=== PATIENT | male | born 1955 | race Hispanic/Latino ===

== ENCOUNTER 2019-10-12 21:38 | Inpatient (IN) | payer BC, OTHER ==
[~2019-10-12] VITALS: Ht 172.7 cm; Wt 107.5 kg
[~2019-10-12 21:38] MED LIST: AMLO5TAB9 PO; AMOX-426 PO; ASPI-556 PO; CARV12.511 PO; FENO67CA PO; FURO40TA5 PO; GLIM4TAB36 PO; INSLAN SQ; ISOS20TA9 PO; LEVO25TA54 PO; LOSA100T58 PO; NITR0.4T SL; RANO500T2 PO; ROCURONIUM BROMIDE 10MG/1ML 5ML VL IV ONE; ROSU10TA28 PO; SITA50TA PO; TRAM50TA2 PO
[2019-10-12 21:57] LABS: ABG BASE EXCESS -8.2 mmol/L (-2.0-3.0); ABG HCO3 15.3 mmol/L (21.0-28.0); ABG OXYGEN SATURATION 96.5 % (95.0-99.0); ABG PCO2 27 mmHg (35-48)
[2019-10-12 22:35] LABS: BASOPHILS % (AUTO) 0.1 % (0.0-5.0); EOSINOPHILS % (AUTO) 0.1 % (0.0-8.0); HEMATOCRIT 30.2 % (42-54); LYMPHOCYTES % (AUTO) 6.4 % (21.0-51.0); MEAN CORPUSCULAR HEMOGLOBIN 30.7 pg (27.0-33.0); MEAN CORPUSCULAR HGB CONC 35.1 g/dL (32.0-36.0); MEAN CORPUSCULAR VOLUME 87.5 fL (79-99); MONOCYTES % (AUTO) 1.9 % (3.0-13.0); NEUTROPHILS % (AUTO) 88.8 % (40.0-77.0); NUCLEATED RED BLOOD CELLS 0.3 % (0.0-0.19); PLATELET COUNT (AUTO) 230 K/uL (130-400); RED BLOOD CELL COUNT(AUTO) 3.45 MIL/uL (4.50-6.20); RED CELL DISTRIBUTION WIDTH 13.4 % (11.0-15.5); WHITE BLOOD COUNT (AUTO) 7.9 K/uL (4.8-10.8)
[2019-10-12 23:02] LABS: CREATININE 4.2 mg/dL (0.5-1.5); POTASSIUM 3.5 mmol/L (3.5-5.1)
[2019-10-12 23:08] LABS: INR 1.09 (0.85-1.15); PARTIAL THROMBOPLASTIN TIME 28.5 SEC (26.3-35.5); PROTHROMBIN TIME 11.7 SEC (9.6-11.6)
[2019-10-12 23:23] LABS: ALBUMIN 1.5 g/dL (3.5-5.0); BILIRUBIN,TOTAL 0.3 mg/dL (0.2-1.0); TOTAL PROTEIN, SERUM 5.6 g/dL (6.0-8.3)
[2019-10-12 23:42] LABS: CRP QUANTITATIVE 286.5 mg/L (0.00-9.0)
[2019-10-12] MEDS: DOXYCYCLINE 100MG+NS 250ML IV SCH (23:45)
[2019-10-12] MEDS ORDERED: ERGOCALCIFEROL (VITAMIN D2) 50,000 UNIT CAPSULE PO ONE (23:45)
[2019-10-12] MEDS ORDERED: ACETAMINOPHEN 325 MG TAB PO PRN (23:45)
[2019-10-12] MEDS: CEFTRIAXONE SODIUM 1 GM IVP SCH (23:45)
[2019-10-12] MEDS ORDERED: LACTULOSE 20 GM/30 ML UDCUP PO PRN (23:45)
[2019-10-13] MEDS ORDERED: ERGOCALCIFEROL (VITAMIN D2) 50,000 UNIT CAPSULE ONE (00:01)
[2019-10-13] MEDS ORDERED: ASPIRIN 325 MG TABLET PO STA (00:06)
[2019-10-13] MEDS ORDERED: ASPIRIN 81MG TAB.CHEW ONE ×2 (00:49→10:18)
[2019-10-13 01:11] LABS: CHOLESTEROL 133 mg/dL (<200); HDL CHOLESTEROL 90 mg/dL (29-71); LDL DIRECT 60 mg/dL (0-99); TRIGLYCERIDES 250 mg/dL (30-200)
[2019-10-13] MEDS ORDERED: ASPIRIN 325 MG TABLET ONE (02:08)
[2019-10-13] MEDS ORDERED: INSULIN HUMULIN R 100 UNIT/ML 3ML ONE (05:44)
[2019-10-13] MEDS: INSULIN HUMULIN R 100 UNIT/ML 3ML SQ SCH ×4 (05:58→20:17)
[2019-10-13] MEDS: ASCORBIC ACID 500 MG TAB PO SCH (09:00)
[2019-10-13] MEDS ORDERED: ENOXAPARIN SODIUM 40 MG/0.4 ML SYRINGE SQ SCH (09:00)
[2019-10-13] MEDS: ZINC SULFATE 220 CAPSULE PO SCH (09:00)
[2019-10-13] MEDS: METOPROLOL TARTRATE 25 MG TAB PO SCH ×2 (09:00→19:53)
[2019-10-13] MEDS ORDERED: METHYLPREDNISOLONE SOD SUCC 40MG/ML 1ML IVP SCH (09:00)
[2019-10-13] MEDS: ASPIRIN 81MG TAB.CHEW PO SCH (09:00)
[2019-10-13] MEDS ORDERED: ASCORBIC ACID 500 MG TAB ONE (10:18)
[2019-10-13] MEDS ORDERED: ZINC SULFATE 220 CAPSULE ONE (10:18)
[2019-10-13] MEDS ORDERED: METHYLPREDNISOLONE SOD SUCC 125MG/2ML VIAL ONE ×2 (10:19→15:00)
[2019-10-13] MEDS ORDERED: ENOXAPARIN SODIUM 40 MG/0.4 ML SYRINGE SQ ONE (10:19)
[2019-10-13] MEDS: DOXYCYCLINE 100MG+NS 250ML IV SCH (11:45)
[2019-10-13] MEDS: CEFTRIAXONE SODIUM 1 GM IVP SCH ×2 (11:45→23:29)
[2019-10-13] MEDS ORDERED: LORAZEPAM 2 MG/ML 1 ML VIAL ONE (13:08)
[2019-10-13 13:15] LABS: BASOPHILS % (AUTO) 0.1 % (0.0-5.0); HEMATOCRIT 32.5 % (42-54); LYMPHOCYTES % (AUTO) 6.1 % (21.0-51.0); MEAN CORPUSCULAR HEMOGLOBIN 29.9 pg (27.0-33.0); MEAN CORPUSCULAR HGB CONC 34.2 g/dL (32.0-36.0); MEAN CORPUSCULAR VOLUME 87.6 fL (79-99); MONOCYTES % (AUTO) 1.7 % (3.0-13.0); NEUTROPHILS % (AUTO) 89.5 % (40.0-77.0); NUCLEATED RED BLOOD CELLS 0.3 % (0.0-0.19); PLATELET COUNT (AUTO) 242 K/uL (130-400); RED BLOOD CELL COUNT(AUTO) 3.71 MIL/uL (4.50-6.20); RED CELL DISTRIBUTION WIDTH 13.5 % (11.0-15.5); WHITE BLOOD COUNT (AUTO) 8.7 K/uL (4.8-10.8)
[2019-10-13 13:19] LABS: POTASSIUM 3.7 mmol/L (3.5-5.1)
[2019-10-13 13:25] LABS: ALBUMIN 1.5 g/dL (3.5-5.0); BILIRUBIN,TOTAL 0.3 mg/dL (0.2-1.0); TOTAL PROTEIN, SERUM 5.6 g/dL (6.0-8.3)
--- NOTE | 2019-10-13 13:37 | NUR ---
INITIAL SW spoke with patient's spouse, Emelina Virk, [phone]. Patient has no home services. DME: BPM, glucometer (uses insulin). 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 He is able to complete ADL's independently and drives. PCP is Dr. Ag Adame at [place]. Pharmacy is [facility] or [place] [facility]. DCP is home. Addendum: 10/13/19 at 1341 by FAHAD CAMPOVERDE SS Amended: Links added.
[2019-10-13] MEDS: METHYLPREDNISOLONE SOD SUCC 125MG/2ML VIAL IVP SCH ×2 (14:45→19:53)
[2019-10-13] MEDS ORDERED: CEFTRIAXONE SODIUM 1 GM ONE (15:00)
[2019-10-13] MEDS ORDERED: DOXYCYCLINE 100MG+NS 250ML 250 ML IV ONE (15:00)
--- NOTE | 2019-10-13 17:25 | NUR ---
pt received from ED aaox4\ resp tachypneic and labored at rest. pt arrived with nrb on 15pm. 02 sat 51% RN called resp therapy to set up bipap. respiratory at beside. pt placed in prone position, bipap on. 02 sat 98% Bedside cardiac catheterization technician showing SR @88 pt speaking in fragmented sentences with clear speech moving all extremities freely
[2019-10-13 19:00] VITALS: BP 145/65
[2019-10-13] MEDS: LORAZEPAM 2 MG/ML 1 ML VIAL IVP PRN (19:55)
[2019-10-13 20:00] VITALS: BP 134/68
[2019-10-13 21:00] VITALS: BP 133/65
[2019-10-13 22:00] VITALS: BP 143/71
[2019-10-13 23:54] VITALS: BP 128/58
[2019-10-14] VITALS (32 sets, daily range): BP systolic 105–158; BP diastolic 42–102
[2019-10-14] MEDS: DOXYCYCLINE 100MG+NS 250ML IV SCH (00:57)
[2019-10-14] MEDS: METHYLPREDNISOLONE SOD SUCC 125MG/2ML VIAL IVP SCH ×4 (02:46→19:38)
[2019-10-14 03:50] LABS: HEMATOCRIT 33.6 % (42-54); MEAN CORPUSCULAR HEMOGLOBIN 30.7 pg (27.0-33.0); MEAN CORPUSCULAR HGB CONC 34.5 g/dL (32.0-36.0); MEAN CORPUSCULAR VOLUME 88.9 fL (79-99); PLATELET COUNT (AUTO) 258 K/uL (130-400); RED BLOOD CELL COUNT(AUTO) 3.78 MIL/uL (4.50-6.20); RED CELL DISTRIBUTION WIDTH 13.4 % (11.0-15.5); WHITE BLOOD COUNT (AUTO) 10.4 K/uL (4.8-10.8)
[2019-10-14 04:04] LABS: CREATININE 3.8 mg/dL (0.5-1.5); CRP QUANTITATIVE 163.4 mg/L (0.00-9.0); PHOSPHORUS 3.9 mg/dL (2.5-4.9); POTASSIUM 3.5 mmol/L (3.5-5.1)
[2019-10-14 04:06] LABS: BAND NEUTROPHILS % (MANUAL) 2 % (0-2); LYMPHOCYTES % (MANUAL) 5 % (22-44); MAN.DIFF COMMENT-IMPRESSION MANUAL DIFFERENTIAL; MONOCYTES % (MANUAL) 5 % (2-9); SEGMENTED NEUTROPHILS % 88 % (40-70)
[2019-10-14 04:07] LABS: PLATELET MORPHOLOGY COMMENT ADEQUATE
[2019-10-14 04:24] LABS: % IRON SATURATION 25.5 % (30-44)
--- NOTE | 2019-10-14 07:03 | NUR ---
REPORT GIVEN TO DUNIA BARRERA; VSS ON BIPAP; NO S/S DISTRESS NOTED; RELINQUISHED PT CARE AT THIS TIME
[2019-10-14] MEDS: ZINC SULFATE 220 CAPSULE PO SCH (08:44)
[2019-10-14] MEDS: ASPIRIN 81MG TAB.CHEW PO SCH (08:44)
[2019-10-14] MEDS: METOPROLOL TARTRATE 25 MG TAB PO SCH (08:44)
[2019-10-14] MEDS: ASCORBIC ACID 500 MG TAB PO SCH (08:44)
[2019-10-14] MEDS: ENOXAPARIN SODIUM 120 MG/0.8ML SQ SCH (08:45)
[2019-10-14] MEDS: INSULIN HUMULIN R 100 UNIT/ML 3ML SQ SCH ×4 (09:27→19:53)
[2019-10-14] MEDS ORDERED: CLOPIDOGREL BISULFATE 75 MG TAB PO SCH (10:00)
[2019-10-14] MEDS: CEFTRIAXONE SODIUM 1 GM IVP SCH (10:42)
--- NOTE | 2019-10-14 10:57 | NUR ---
CHART CHECK COMPLETED. Pt IS A 64 YEAR OLD MALE ADMITTED SECONDARY TO POSSIBLE COVID, ACUTE RENAL FAILURE, ACUTE RESPIRATORY DISTRESS. Pt HAS A PAST MEDICAL HISTORY SIGNIFICANT FOR DM, HTN, CAD, HLD, ANGINA. Pt CURRENTLY ON REGULAR TEXTURE, THIN LIQUID DIET. Pt WITH POOR RESPIRATORY STATUS REQUIRING BIPAP. PLEASE REQUEST SKILLED SPEECH/SWALLOWING EVALUATION IF Pt PRESENTS WITH +S/S OF ASPIRATION SUCH COUGH RESPONSE, WET VOCAL QUALITY, OR THROAT CLEAR DURING P.O. Pt SHOULD BE ABLE TO BE OFF OF BIPAP FOR 30 MINUTES DURING MEAL IF CURRENTLY ON P.O. DIET. Addendum: 10/14/19 at 1102 by JOE MCKEON [facility] Amended: Links added.
[2019-10-14] MEDS ORDERED: PHARMACY COMMUNICATION MISC SCH (11:15)
[2019-10-14] MEDS ORDERED: INSULIN GLARGINE 100 UNITS/ML 10 ML VIAL SQ ONE (11:15)
--- NOTE | 2019-10-14 12:00 | NUR ---
PHONE CALL FAMILY UPDATED
[2019-10-14] MEDS: DOXYCYCLINE 100MG+NS 250ML 250 ML IV SCH (12:36)
[2019-10-14] MEDS ORDERED: EZET10TA48 PO (14:57)
[2019-10-14] MEDS ORDERED: FOLI1TAB85 PO (14:57)
[2019-10-14] MEDS ORDERED: CARV25TA PO (14:57)
[2019-10-14] MEDS ORDERED: DULA0.75 SQ (14:57)
[2019-10-14] MEDS: LORAZEPAM 2 MG/ML 1 ML VIAL IVP PRN ×2 (15:00→22:33)
[2019-10-14 15:54] LABS: APPEARANCE,URINE SL CLOUDY (CLEAR); BILIRUBIN,URINE NEGATIVE (NEGATIVE); COLOR,URINE YELLOW (YELLOW); GLUCOSE, URINE (UA) NEGATIVE (NEGATIVE); KETONES,URINE NEGATIVE (NEGATIVE); LEUKOCYTE ESTERASE ,URINE NEGATIVE (NEGATIVE); NITRATE,URINE NEGATIVE (NEGATIVE); OCCULT BLOOD,URINE LARGE (NEGATIVE); PROTEIN,URINE >=300 mg/dL (NEGATIVE); UROBILINOGEN,URINE 0.2 mg/dL (0.2-1.0)
[2019-10-14 16:08] LABS: BACTERIA,URINE Few /HPF (None Seen)
[2019-10-14 16:13] LABS: SQUAMOUS EPITHELIAL CELL,UR Few /HPF (0-2)
[2019-10-14] MEDS ORDERED: LORAZEPAM 2 MG/ML 1 ML VIAL IVP SCH (16:15)
[2019-10-14] MEDS: DEXMEDETOMIDINE HCL 400 MCG in SODIUM CHLORIDE 0.9% 100 ML IV SCH (19:44)
[2019-10-15] VITALS (51 sets, daily range): BP systolic 111–150; BP diastolic 57–82
[2019-10-15] MEDS: CEFTRIAXONE SODIUM 1 GM IVP SCH ×2 (00:18→11:31)
[2019-10-15] MEDS: DOXYCYCLINE 100MG+NS 250ML 250 ML IV SCH ×2 (00:18→11:31)
[2019-10-15] MEDS: METHYLPREDNISOLONE SOD SUCC 125MG/2ML VIAL IVP SCH ×4 (01:56→20:37)
[2019-10-15] MEDS: DEXMEDETOMIDINE HCL 400 MCG in SODIUM CHLORIDE 0.9% 100 ML IV SCH ×3 (03:40→20:40)
[2019-10-15 04:32] LABS: HEMATOCRIT 30.5 % (42-54); LYMPHOCYTES % (AUTO) 4.4 % (21.0-51.0); MEAN CORPUSCULAR HEMOGLOBIN 30.3 pg (27.0-33.0); MEAN CORPUSCULAR HGB CONC 34.4 g/dL (32.0-36.0); MEAN CORPUSCULAR VOLUME 88.2 fL (79-99); MONOCYTES % (AUTO) 2.7 % (3.0-13.0); NEUTROPHILS % (AUTO) 90.7 % (40.0-77.0); NUCLEATED RED BLOOD CELLS 0.7 % (0.0-0.19); PLATELET COUNT (AUTO) 223 K/uL (130-400); RED BLOOD CELL COUNT(AUTO) 3.46 MIL/uL (4.50-6.20); RED CELL DISTRIBUTION WIDTH 13.6 % (11.0-15.5); WHITE BLOOD COUNT (AUTO) 8.1 K/uL (4.8-10.8)
[2019-10-15 04:56] LABS: ALBUMIN 1.3 g/dL (3.5-5.0); BILIRUBIN,TOTAL 0.3 mg/dL (0.2-1.0); CREATININE 3.3 mg/dL (0.5-1.5); CRP QUANTITATIVE 71.2 mg/L (0.00-9.0); MAGNESIUM 3.5 mg/dL (1.80-2.40); PHOSPHORUS 4.2 mg/dL (2.5-4.9); POTASSIUM 3.6 mmol/L (3.5-5.1); TOTAL PROTEIN, SERUM 5.2 g/dL (6.0-8.3)
[2019-10-15] MEDS: INSULIN GLARGINE 100 UNITS/ML 10 ML VIAL SQ SCH (06:50)
[2019-10-15] MEDS: INSULIN HUMULIN R 100 UNIT/ML 3ML SQ SCH ×4 (06:50→20:39)
[2019-10-15] MEDS ORDERED: METOPROLOL TARTRATE 25 MG TAB ONE (08:54)
[2019-10-15] MEDS ORDERED: PANTOPRAZOLE SODIUM 40 MG TABLET.DR PO SCH (09:00)
[2019-10-15] MEDS ORDERED: SODIUM CHLORIDE 0.9% 250 ML IV ONE (09:15)
[2019-10-15] MEDS: ASCORBIC ACID 500 MG TAB PO SCH (09:20)
[2019-10-15] MEDS: PANTOPRAZOLE 40 MG/VIAL IVP SCH (09:20)
[2019-10-15] MEDS: ASPIRIN 81MG TAB.CHEW PO SCH (09:20)
[2019-10-15] MEDS: ZINC SULFATE 220 CAPSULE PO SCH (09:21)
[2019-10-15] MEDS: ENOXAPARIN SODIUM 120 MG/0.8ML SQ SCH (09:21)
[2019-10-15] MEDS: CLOPIDOGREL BISULFATE 75 MG TAB PO SCH (09:21)
[2019-10-15] MEDS: METOPROLOL TARTRATE 25 MG TAB PO SCH ×2 (09:22→20:41)
--- NOTE | 2019-10-15 14:52 | NUR ---
PHONE CALL UPDATED PATIENTS DAUGHTER GRAZYNA ON PATIENT STATUS AND GAVE OPPORTUNITY TO ASK QUESTIONS.
[2019-10-15] MEDS: LORAZEPAM 2 MG/ML 1 ML VIAL IVP PRN (20:37)
[2019-10-16] VITALS (24 sets, daily range): BP systolic 131–167; BP diastolic 51–82
[2019-10-16] MEDS: CEFTRIAXONE SODIUM 1 GM IVP SCH ×3 (01:17→23:45)
[2019-10-16] MEDS: DOXYCYCLINE 100MG+NS 250ML 250 ML IV SCH ×2 (01:17→11:35)
[2019-10-16] MEDS: LORAZEPAM 2 MG/ML 1 ML VIAL IVP PRN (02:43)
[2019-10-16] MEDS: DEXMEDETOMIDINE HCL 400 MCG in SODIUM CHLORIDE 0.9% 100 ML IV SCH ×4 (02:43→20:03)
[2019-10-16] MEDS: METHYLPREDNISOLONE SOD SUCC 125MG/2ML VIAL IVP SCH ×4 (02:43→20:04)
[2019-10-16] MEDS: HYDRALAZINE HCL 20 MG/ML VIAL IV PRN (03:53)
[2019-10-16] MEDS ORDERED: HALOPERIDOL LACTATE 5 MG/ML VIAL ONE ×2 (04:34→11:55)
[2019-10-16 04:41] LABS: BASOPHILS % (AUTO) 0.1 % (0.0-5.0); HEMATOCRIT 30.6 % (42-54); LYMPHOCYTES % (AUTO) 3.6 % (21.0-51.0); MEAN CORPUSCULAR HEMOGLOBIN 30.4 pg (27.0-33.0); MEAN CORPUSCULAR VOLUME 89.5 fL (79-99); MONOCYTES % (AUTO) 2.6 % (3.0-13.0); NEUTROPHILS % (AUTO) 91.6 % (40.0-77.0); NUCLEATED RED BLOOD CELLS 0.6 % (0.0-0.19); PLATELET COUNT (AUTO) 205 K/uL (130-400); RED BLOOD CELL COUNT(AUTO) 3.42 MIL/uL (4.50-6.20); RED CELL DISTRIBUTION WIDTH 13.8 % (11.0-15.5); WHITE BLOOD COUNT (AUTO) 8.1 K/uL (4.8-10.8)
[2019-10-16 05:05] LABS: ALBUMIN 1.5 g/dL (3.5-5.0); BILIRUBIN,TOTAL 0.5 mg/dL (0.2-1.0); CREATININE 2.7 mg/dL (0.5-1.5); CRP QUANTITATIVE 34.1 mg/L (0.00-9.0); MAGNESIUM 3.9 mg/dL (1.80-2.40); PHOSPHORUS 3.5 mg/dL (2.5-4.9); POTASSIUM 3.5 mmol/L (3.5-5.1)
--- NOTE | 2019-10-16 05:05 | NUR ---
PT EXTREMELY TACHYPNEIC MAXED ON PRECEDEX GTT AND AFTER GIVEN HALDOL IM ORDERS VIA DR. MIRANDA PER TELEPHONE; STAT ABG ORDERED; PTS RR IN 60S WITH MARKED LABORED BREATHING; AWAITING ABG RESULTS FOR FOLLOW UP
--- NOTE | 2019-10-16 05:20 | NUR ---
DR MIRANDA UPDATED ON PTS ABG RESULTS AND PTS PHYSICAL ASSESSMENT WITH NOTED ACCESSORY MUSCLE USE; ALL LS DIMINISHED; PENDING CHEST XRAY THIS AM; DR MIRANDA STATES PER TELEPHONE "CHANGES ON THE BIPAP ARE NOT CURRENTLY NECESSARY AND WE WILL HAVE TO WAIT UNTIL THE PATIENT TIRES OUT"; WILL CONTINUE TO CLOSELY MONITOR
[2019-10-16] MEDS: INSULIN GLARGINE 100 UNITS/ML 10 ML VIAL SQ SCH (06:20)
[2019-10-16] MEDS: INSULIN LISPRO 100 UNIT/ML 3ML SQ SCH ×3 (06:22→17:00)
[2019-10-16] MEDS: INSULIN HUMULIN R 100 UNIT/ML 3ML SQ SCH ×4 (06:22→20:04)
--- NOTE | 2019-10-16 07:16 | NUR ---
REPORT GIVEN TO DUNIA WHITAKER; VSS FINALLY RESTING ON BIPAP RR MILDLY LABORED IN 30S; NO S/S ACUTE DISTRESS NOTED; CHART CHECK DONE; RELINQUISHED PT CARE AT THIS TIME
--- NOTE | 2019-10-16 07:30 | NUR ---
ASSESSMENT Comfortably sedated with current dose of precedex - 0.9mcg/kg/hr. Pt arousable with verbal stimulation and light tactile stimulation - opened eyes to command but did not make eye contact with caregiver. Attempts made to reorient/reassure pt - did not acknowledge understanding. SB on tele with distant apical heart tones. Diminished breath sounds throughout. Pt agitated with tactile stimulation- attempted to push away hand of caregiver during assessment. PIV x2 patent. Mittens in use to both hand. Remains on bipap at prescribed settings. Abd obese - soft. Diminished bowel sounds. F/C patent - cloudy urine. Repositioned to left side lying position. HOB at 35-degrees. Side rails up for safety. Assessment as recorded.
[2019-10-16] MEDS: ZINC SULFATE 220 CAPSULE PO SCH (09:00)
[2019-10-16] MEDS: ASPIRIN 81MG TAB.CHEW PO SCH (09:00)
[2019-10-16] MEDS: METOPROLOL TARTRATE 25 MG TAB PO SCH ×2 (09:00→20:03)
[2019-10-16] MEDS: CLOPIDOGREL BISULFATE 75 MG TAB PO SCH (09:00)
[2019-10-16] MEDS: ASCORBIC ACID 500 MG TAB PO SCH (09:00)
[2019-10-16 10:26] LABS: ABG BASE EXCESS -5.4 mmol/L (-2.0-3.0); ABG HCO3 18.3 mmol/L (21.0-28.0); ABG OXYGEN SATURATION 94.9 % (95.0-99.0); ABG PCO2 31 mmHg (35-48)
--- NOTE | 2019-10-16 11:00 | NUR ---
MD ROUNDS in to see pt - updated. No new changes in plan of care. Discussed insertion of NGT for med administration - not recommended currently by MD. Pt is in no acute distress. No acute changes in overall assessment. SB on tele. HOB @35-degrees. Supine position. Pt easily agitated with tactile stimulation/repositioning. IV precedex titrated to effect.
[2019-10-16] MEDS: PANTOPRAZOLE 40 MG/VIAL IVP SCH (11:34)
[2019-10-16] MEDS: ENOXAPARIN SODIUM 120 MG/0.8ML SQ SCH (11:35)
--- NOTE | 2019-10-16 12:30 | NUR ---
PT CARE Placed in prone position. Will observe pt tolerance.
--- NOTE | 2019-10-16 12:50 | NUR ---
ASSESSMENT Pt repositioned self out of prone position - found in right side-lying position. Bipap mask replaced - correct position achieved. IV precedex gtt titrated for effect - now at 1.5mcg/kg/hr. Will observe tolerance. Attempts made to reassure pt.
--- NOTE | 2019-10-16 13:45 | NUR ---
ASSESSMENT Resting quietly - no further agitation noted. IV precedex gtt now at 1mcg/kg/hr. Will observe tolerance.
[2019-10-16] MEDS ORDERED: PHARMACY COMMUNICATION MISC SCH (14:30)
--- NOTE | 2019-10-16 15:40 | NUR ---
ASSESSMENT No acute changes in overall assessment. Complete bed bath rendered. Repositioned for comfort - left side-lying position with HOB elevated. Pt is in no acute distress.
[2019-10-16 18:45] LABS: APPEARANCE,URINE CLEAR (CLEAR); BILIRUBIN,URINE NEGATIVE (NEGATIVE); COLOR,URINE YELLOW (YELLOW); GLUCOSE, URINE (UA) NEGATIVE (NEGATIVE); KETONES,URINE NEGATIVE (NEGATIVE); LEUKOCYTE ESTERASE ,URINE NEGATIVE (NEGATIVE); NITRATE,URINE NEGATIVE (NEGATIVE); OCCULT BLOOD,URINE LARGE (NEGATIVE); PROTEIN,URINE >=300 mg/dL (NEGATIVE); UROBILINOGEN,URINE 0.2 mg/dL (0.2-1.0)
[2019-10-16 18:47] LABS: SODIUM,URINE RANDOM < 15 mmol/l (40-220)
[2019-10-16 18:54] LABS: BACTERIA,URINE Few /HPF (None Seen); SQUAMOUS EPITHELIAL CELL,UR Few /HPF (0-2); URIC ACID CRYSTALS,URINE Moderate /LPF (None Seen)
[2019-10-16] MEDS: DOXYCYCLINE HYCLATE 100 MG TABLET PO SCH (20:04)
[2019-10-17] VITALS (29 sets, daily range): BP systolic 113–168; BP diastolic 60–83
[2019-10-17] MEDS: HALOPERIDOL LACTATE 5 MG/ML VIAL IM PRN ×3 (02:26→19:34)
[2019-10-17] MEDS: DEXMEDETOMIDINE HCL 400 MCG in SODIUM CHLORIDE 0.9% 100 ML IV SCH ×6 (02:28→21:23)
[2019-10-17] MEDS: LORAZEPAM 2 MG/ML 1 ML VIAL IVP PRN (02:37)
[2019-10-17] MEDS: METHYLPREDNISOLONE SOD SUCC 125MG/2ML VIAL IVP SCH (02:37)
[2019-10-17 04:12] LABS: BASOPHILS % (AUTO) 0.1 % (0.0-5.0); HEMATOCRIT 33.6 % (42-54); LYMPHOCYTES % (AUTO) 3.2 % (21.0-51.0); MEAN CORPUSCULAR HEMOGLOBIN 31.1 pg (27.0-33.0); MEAN CORPUSCULAR HGB CONC 33.3 g/dL (32.0-36.0); MEAN CORPUSCULAR VOLUME 93.3 fL (79-99); MONOCYTES % (AUTO) 2.6 % (3.0-13.0); NEUTROPHILS % (AUTO) 92.1 % (40.0-77.0); PLATELET COUNT (AUTO) 194 K/uL (130-400); RED CELL DISTRIBUTION WIDTH 14.5 % (11.0-15.5); WHITE BLOOD COUNT (AUTO) 7.4 K/uL (4.8-10.8)
[2019-10-17 04:31] LABS: ALBUMIN 1.6 g/dL (3.5-5.0); BILIRUBIN,TOTAL 0.7 mg/dL (0.2-1.0); CREATININE 2.7 mg/dL (0.5-1.5); CRP QUANTITATIVE 22.6 mg/L (0.00-9.0); MAGNESIUM 3.6 mg/dL (1.80-2.40); PHOSPHORUS 5.9 mg/dL (2.5-4.9); POTASSIUM 3.7 mmol/L (3.5-5.1); TOTAL PROTEIN, SERUM 5.2 g/dL (6.0-8.3)
[2019-10-17] MEDS: INSULIN LISPRO 100 UNIT/ML 3ML SQ SCH ×3 (05:46→17:00)
[2019-10-17] MEDS: INSULIN GLARGINE 100 UNITS/ML 10 ML VIAL SQ SCH (06:08)
[2019-10-17] MEDS: INSULIN HUMULIN R 100 UNIT/ML 3ML SQ SCH ×4 (06:08→21:25)
[2019-10-17] MEDS: ONDANSETRON HCL 4 MG/2 ML VIAL IV PRN (06:09)
--- NOTE | 2019-10-17 07:09 | NUR ---
REPORT GIVEN TO DUNIA ALVA; VSS ON BIPAP AND PRECEDEX GTT; NO S/S DISTRESS NOTED; CHART CHECK DONE;RELINQUISHED PT CARE AT THIS TIME
[2019-10-17] MEDS ORDERED: ENOXAPARIN SODIUM 30 MG/0.3 ML SQ SCH (09:00)
[2019-10-17] MEDS: METOPROLOL TARTRATE 25 MG TAB PO SCH ×2 (09:00→21:00)
[2019-10-17] MEDS: METHYLPREDNISOLONE SOD SUCC 40MG/ML 1ML IVP SCH ×3 (09:01→23:22)
[2019-10-17] MEDS: CLOPIDOGREL BISULFATE 75 MG TAB PO SCH (09:01)
[2019-10-17] MEDS: DOXYCYCLINE HYCLATE 100 MG TABLET PO SCH ×2 (09:01→21:24)
[2019-10-17] MEDS: ASCORBIC ACID 500 MG TAB PO SCH (09:01)
[2019-10-17] MEDS: ISOSORBIDE DINITRATE 10 MG TABLET PO SCH ×2 (09:01→21:24)
[2019-10-17] MEDS: PANTOPRAZOLE 40 MG/VIAL IVP SCH (09:01)
[2019-10-17] MEDS: ASPIRIN 81MG TAB.CHEW PO SCH (09:02)
[2019-10-17] MEDS: DEXTROSE 5%-WATER 1,000 ML IV SCH ×3 (09:03→23:57)
[2019-10-17] MEDS: ZINC SULFATE 220 CAPSULE PO SCH (12:33)
[2019-10-17] MEDS: CEFTRIAXONE SODIUM 1 GM IVP SCH ×2 (12:33→23:22)
--- NOTE | 2019-10-17 13:03 | NUR ---
RD NOTIFICATION - TUBE FEEDING Recommend Continuous Vital High Protein, Goal rate at 45mls/hr. Recommend Flush 300mL Q4Hrs Recommendations faxed to [address] Floor Pod [address]. costume rental clerk notified. RD Note: Pt positive for COVID-19. NGT placed. High-flow BiPAP in place. Na 162, Cr 2.7, BUN 90, GFR 25, BG 213, Alb 1.6. Acute Renal Failure. DM. Lantus, Zinc supplementation in place. Lantus, IV dextrose, Humulin R in place. RD to continue to monitor. Please notify as additional nutrition concerns arise. Thank you.
[2019-10-17] MEDS: HYDRALAZINE HCL 20 MG/ML VIAL IV PRN (16:58)
--- NOTE | 2019-10-17 18:47 | NUR ---
HEMATURIA DR BENNETT ORDERED A HOLD ON PLAVIX, ASPIRIN, AND LOVENOX FOR NOW; STATED HE WILL REEVALUATE PATIENT TOMORROW; HEMATURIA NOTED EARLIER TODAY AND DR BENNETT AND DR MELENDREZ NOTIFIED AND AWARE; WAS ABLE TO SEE AND SPEAK TO THE PATIENT VIA ZOOM TABLET FROM NURSE'S STATION. PATIENT REMAINS ON BIPAP AND PRECEDEX ORDERED BY DR BENNETT; NGT ATTEMPTED TO BE REPLACED BY 4 RNS DURING THE DAY; MACROECONOMICS PROFESSOR TO TRY TO REPLACE NGT TONIGHT; PRIOR NGT BECAME CLOGGED THIS AFTERNOON.
[2019-10-18] VITALS (24 sets, daily range): BP systolic 110–174; BP diastolic 46–84
[2019-10-18] MEDS: DEXMEDETOMIDINE HCL 400 MCG in SODIUM CHLORIDE 0.9% 100 ML IV SCH ×3 (01:01→09:06)
[2019-10-18] MEDS: HYDRALAZINE HCL 20 MG/ML VIAL IV PRN ×2 (02:09→19:46)
[2019-10-18 03:44] LABS: HEMATOCRIT 33.5 % (42-54); LYMPHOCYTES % (AUTO) 2.4 % (21.0-51.0); MEAN CORPUSCULAR HEMOGLOBIN 30.1 pg (27.0-33.0); MEAN CORPUSCULAR HGB CONC 31.9 g/dL (32.0-36.0); MEAN CORPUSCULAR VOLUME 94.4 fL (79-99); MONOCYTES % (AUTO) 2.7 % (3.0-13.0); NEUTROPHILS % (AUTO) 93.2 % (40.0-77.0); NUCLEATED RED BLOOD CELLS 0.3 % (0.0-0.19); PLATELET COUNT (AUTO) 163 K/uL (130-400); RED BLOOD CELL COUNT(AUTO) 3.55 MIL/uL (4.50-6.20); RED CELL DISTRIBUTION WIDTH 14.7 % (11.0-15.5); WHITE BLOOD COUNT (AUTO) 5.8 K/uL (4.8-10.8)
[2019-10-18 04:12] LABS: BILIRUBIN,DIRECT 0.4 mg/dL (0.0-0.3); BILIRUBIN,TOTAL 0.7 mg/dL (0.2-1.0); CREATININE 2.4 mg/dL (0.5-1.5); CRP QUANTITATIVE 19.7 mg/L (0.00-9.0); MAGNESIUM 3.8 mg/dL (1.80-2.40); PHOSPHORUS 5.2 mg/dL (2.5-4.9); POTASSIUM 3.9 mmol/L (3.5-5.1)
[2019-10-18 04:15] LABS: INR 1.48 (0.85-1.15); PARTIAL THROMBOPLASTIN TIME 27.1 SEC (26.3-35.5); PROTHROMBIN TIME 15.7 SEC (9.6-11.6)
[2019-10-18] MEDS: INSULIN HUMULIN R 100 UNIT/ML 3ML SQ SCH ×4 (05:30→19:47)
[2019-10-18] MEDS: INSULIN LISPRO 100 UNIT/ML 3ML SQ SCH ×3 (05:30→17:05)
[2019-10-18] MEDS: INSULIN GLARGINE 100 UNITS/ML 10 ML VIAL SQ SCH (05:38)
--- NOTE | 2019-10-18 07:18 | NUR ---
REPORT GIVEN TO DUNIA LANDIN ;VSS; PT CALM ON PRECEDEX GTT; NO S/S DISTRESS NOTED; CHART CHECK DONE; RELINQUISHED PT CARE AT THIS TIME
[2019-10-18] MEDS: PANTOPRAZOLE 40 MG/VIAL IVP SCH (09:01)
[2019-10-18] MEDS: METHYLPREDNISOLONE SOD SUCC 40MG/ML 1ML IVP SCH ×2 (09:01→17:02)
[2019-10-18] MEDS: DEXTROSE 5%-WATER 1,000 ML IV SCH ×4 (09:02→17:06)
[2019-10-18] MEDS: HALOPERIDOL LACTATE 5 MG/ML VIAL IM PRN ×2 (09:02→23:32)
[2019-10-18] MEDS ORDERED: ENOXAPARIN SODIUM 100 MG/1 ML SQ SCH (10:00)
[2019-10-18] MEDS ORDERED: DEXMEDETOMIDINE HCL 400 MCG in SODIUM CHLORIDE 0.9% 100 ML IV SCH (10:00)
[2019-10-18] MEDS: ISOSORBIDE DINITRATE 10 MG TABLET PO SCH ×2 (10:26→19:45)
[2019-10-18] MEDS: DOXYCYCLINE HYCLATE 100 MG TABLET PO SCH ×2 (10:26→19:45)
[2019-10-18] MEDS: ASCORBIC ACID 500 MG TAB PO SCH (10:26)
[2019-10-18] MEDS: METOPROLOL TARTRATE 25 MG TAB PO SCH ×2 (10:27→19:46)
[2019-10-18] MEDS: ZINC SULFATE 220 CAPSULE PO SCH (12:09)
[2019-10-18] MEDS: CEFTRIAXONE SODIUM 1 GM IVP SCH ×2 (12:09→23:32)
[2019-10-18] MEDS ORDERED: PHARMACY COMMUNICATION MISC SCH (15:00)
[2019-10-18] MEDS: DEXMEDETOMIDINE HCL IV SCH (21:49)
[2019-10-18] MEDS: DEXTROSE 5% IV SCH (21:49)
[2019-10-18] MEDS: WATER IV SCH (21:49)
[2019-10-19] VITALS (30 sets, daily range): BP systolic 115–171; BP diastolic 59–89
[2019-10-19] MEDS: DEXTROSE 5% IV SCH ×4 (01:11→21:42)
[2019-10-19] MEDS: DEXMEDETOMIDINE HCL IV SCH ×4 (01:11→21:42)
[2019-10-19] MEDS: METHYLPREDNISOLONE SOD SUCC 40MG/ML 1ML IVP SCH ×3 (01:11→18:35)
[2019-10-19] MEDS: WATER IV SCH ×4 (01:11→21:42)
[2019-10-19] MEDS: DEXTROSE 5%-WATER 1,000 ML IV SCH ×4 (01:12→22:03)
[2019-10-19] MEDS: HYDRALAZINE HCL 20 MG/ML VIAL IV PRN (05:08)
[2019-10-19] MEDS: INSULIN HUMULIN R 100 UNIT/ML 3ML SQ SCH ×4 (06:15→20:55)
[2019-10-19] MEDS: INSULIN LISPRO 100 UNIT/ML 3ML SQ SCH ×2 (06:16→12:51)
[2019-10-19] MEDS: INSULIN GLARGINE 100 UNITS/ML 10 ML VIAL SQ SCH ×2 (06:16→21:59)
[2019-10-19 06:27] LABS: BASOPHILS % (AUTO) 0.1 % (0.0-5.0); HEMATOCRIT 35.5 % (42-54); LYMPHOCYTES % (AUTO) 5.9 % (21.0-51.0); MEAN CORPUSCULAR HEMOGLOBIN 30.3 pg (27.0-33.0); MEAN CORPUSCULAR HGB CONC 32.4 g/dL (32.0-36.0); MEAN CORPUSCULAR VOLUME 93.4 fL (79-99); NEUTROPHILS % (AUTO) 88.7 % (40.0-77.0); NUCLEATED RED BLOOD CELLS 0.4 % (0.0-0.19); PLATELET COUNT (AUTO) 142 K/uL (130-400); WHITE BLOOD COUNT (AUTO) 7.3 K/uL (4.8-10.8)
[2019-10-19 06:51] LABS: ALBUMIN 1.4 g/dL (3.5-5.0); BILIRUBIN,TOTAL 0.4 mg/dL (0.2-1.0); CREATININE 2.6 mg/dL (0.5-1.5); CRP QUANTITATIVE 16.3 mg/L (0.00-9.0); POTASSIUM 4.3 mmol/L (3.5-5.1); TOTAL PROTEIN, SERUM 4.7 g/dL (6.0-8.3)
--- NOTE | 2019-10-19 07:03 | NUR ---
REPORT GIVEN TO DUNIA LANDIN; VSS ON BIPAP AND PRECEDEX GTT; NO S/S ACUTE DISTRESS NOTED; CHART CHECK DONE; RELINQUISHED PT CARE AT THIS TIME
[2019-10-19] MEDS: METOPROLOL TARTRATE 25 MG TAB PO SCH ×2 (08:14→21:00)
[2019-10-19] MEDS: ASCORBIC ACID 500 MG TAB PO SCH (08:14)
[2019-10-19] MEDS: ZINC SULFATE 220 CAPSULE PO SCH (08:14)
[2019-10-19] MEDS ORDERED: ENOXAPARIN SODIUM 100 MG/1 ML SQ SCH (10:04)
[2019-10-19] MEDS: ISOSORBIDE DINITRATE 10 MG TABLET PO SCH ×2 (10:08→22:15)
[2019-10-19] MEDS: DOXYCYCLINE HYCLATE 100 MG TABLET PO SCH ×2 (10:08→22:02)
[2019-10-19] MEDS: PANTOPRAZOLE 40 MG/VIAL IVP SCH (10:09)
[2019-10-19] MEDS ORDERED: MORPHINE SULFATE 5 MG/ML VIAL IV PRN ×2 (11:30)
[2019-10-19] MEDS: CEFTRIAXONE SODIUM 1 GM IVP SCH (12:51)
[2019-10-19] MEDS: ONDANSETRON HCL 4 MG/2 ML VIAL IV PRN (12:51)
[2019-10-19] MEDS: HALOPERIDOL LACTATE 5 MG/ML VIAL IM PRN (12:52)
[2019-10-19] MEDS: ENOXAPARIN SODIUM 100 MG/1 ML SQ SCH (15:45)
[2019-10-19 18:03] LABS: CREATININE 2.6 mg/dL (0.5-1.5); POTASSIUM 4.3 mmol/L (3.5-5.1)
[2019-10-19] MEDS ORDERED: SODIUM CHLORIDE 0.9% 500ML 500 ML IV ONE (20:33)
--- NOTE | 2019-10-19 21:41 | NUR ---
5 fr. 2 LUMEN PICC INSERTED TO LEFT BRACHIAL VEIN, USING ASEPTIC TECHNIQUE. (+) VPS BLAINE CONFIRMS THAT "PICC TIP IN LOWER 1/3 OF SVC OR AT CAVO ATRIAL JUNCTION AND OK TO USE PER PROTOCOL
[2019-10-20] VITALS (45 sets, daily range): BP systolic 97–175; BP diastolic 51–81
[2019-10-20] MEDS: METHYLPREDNISOLONE SOD SUCC 40MG/ML 1ML IVP SCH ×3 (00:49→17:10)
[2019-10-20] MEDS: HALOPERIDOL LACTATE 5 MG/ML VIAL IM PRN (00:50)
[2019-10-20] MEDS: DEXTROSE 5% IV SCH ×6 (02:12→20:50)
[2019-10-20] MEDS: WATER IV SCH ×6 (02:12→20:50)
[2019-10-20] MEDS: DEXMEDETOMIDINE HCL IV SCH ×6 (02:12→20:50)
[2019-10-20 04:39] LABS: BASOPHILS % (AUTO) 0.1 % (0.0-5.0); EOSINOPHILS % (AUTO) 0.1 % (0.0-8.0); HEMATOCRIT 32.5 % (42-54); LYMPHOCYTES % (AUTO) 5.4 % (21.0-51.0); MEAN CORPUSCULAR VOLUME 93.7 fL (79-99); NEUTROPHILS % (AUTO) 90.1 % (40.0-77.0); PLATELET COUNT (AUTO) 109 K/uL (130-400); RED BLOOD CELL COUNT(AUTO) 3.47 MIL/uL (4.50-6.20); RED CELL DISTRIBUTION WIDTH 14.8 % (11.0-15.5)
[2019-10-20 05:06] LABS: ALBUMIN 1.1 g/dL (3.5-5.0); BILIRUBIN,TOTAL 0.3 mg/dL (0.2-1.0); CREATININE 2.4 mg/dL (0.5-1.5); CRP QUANTITATIVE 15.7 mg/L (0.00-9.0); MAGNESIUM 3.6 mg/dL (1.80-2.40); POTASSIUM 4.8 mmol/L (3.5-5.1); TOTAL PROTEIN, SERUM 4.2 g/dL (6.0-8.3)
[2019-10-20] MEDS: INSULIN HUMULIN R 100 UNIT/ML 3ML SQ SCH ×4 (06:13→20:36)
[2019-10-20] MEDS: DOXYCYCLINE HYCLATE 100 MG TABLET PO SCH ×2 (08:15→20:36)
[2019-10-20] MEDS: ZINC SULFATE 220 CAPSULE PO SCH (08:15)
[2019-10-20] MEDS: METOPROLOL TARTRATE 25 MG TAB PO SCH ×2 (08:15→22:17)
[2019-10-20] MEDS: ASCORBIC ACID 500 MG TAB PO SCH (08:15)
[2019-10-20] MEDS: ENOXAPARIN SODIUM 100 MG/1 ML SQ SCH (08:16)
[2019-10-20] MEDS: PANTOPRAZOLE 40 MG/VIAL IVP SCH (08:26)
[2019-10-20] MEDS: ISOSORBIDE DINITRATE 10 MG TABLET PO SCH ×2 (08:26→20:36)
[2019-10-20] MEDS: INSULIN GLARGINE 100 UNITS/ML 10 ML VIAL SQ SCH ×2 (09:00→20:35)
[2019-10-20] MEDS: DEXTROSE 5%-WATER 1,000 ML IV SCH (09:06)
[2019-10-20] MEDS: PHARMACY COMMUNICATION MISC SCH ×2 (11:30→21:00)
[2019-10-20 16:30] LABS: CREATININE 2.7 mg/dL (0.5-1.5); POTASSIUM 5.1 mmol/L (3.5-5.1)
[2019-10-21] VITALS (31 sets, daily range): BP systolic 91–193; BP diastolic 43–104
[2019-10-21] MEDS: METHYLPREDNISOLONE SOD SUCC 40MG/ML 1ML IVP SCH ×3 (01:03→16:03)
[2019-10-21] MEDS: DEXMEDETOMIDINE HCL IV SCH ×3 (01:18→09:02)
[2019-10-21] MEDS: DEXTROSE 5% IV SCH ×3 (01:18→09:02)
[2019-10-21] MEDS: WATER IV SCH ×3 (01:18→09:02)
[2019-10-21] MEDS: HALOPERIDOL LACTATE 5 MG/ML VIAL IM PRN (03:28)
[2019-10-21 05:26] LABS: BASOPHILS % (AUTO) 0.1 % (0.0-5.0); HEMATOCRIT 32.8 % (42-54); LYMPHOCYTES % (AUTO) 4.2 % (21.0-51.0); MEAN CORPUSCULAR VOLUME 93.7 fL (79-99); MONOCYTES % (AUTO) 2.2 % (3.0-13.0); NEUTROPHILS % (AUTO) 90.9 % (40.0-77.0); PLATELET COUNT (AUTO) 104 K/uL (130-400); RED CELL DISTRIBUTION WIDTH 14.6 % (11.0-15.5); WHITE BLOOD COUNT (AUTO) 9.9 K/uL (4.8-10.8)
[2019-10-21 06:18] LABS: B-TYPE NATRIURETIC PEPTIDE 30 pg/mL (0-100)
[2019-10-21 06:25] LABS: CRP QUANTITATIVE 10.3 mg/L (0.00-9.0)
[2019-10-21] MEDS: INSULIN HUMULIN R 100 UNIT/ML 3ML SQ SCH ×4 (07:25→22:14)
[2019-10-21] MEDS: ASCORBIC ACID 500 MG TAB PO SCH (08:49)
[2019-10-21] MEDS: ENOXAPARIN SODIUM 100 MG/1 ML SQ SCH (08:49)
[2019-10-21] MEDS: DOXYCYCLINE HYCLATE 100 MG TABLET PO SCH ×2 (08:50→22:11)
[2019-10-21] MEDS: ISOSORBIDE DINITRATE 10 MG TABLET PO SCH ×2 (08:51→22:11)
[2019-10-21] MEDS: PANTOPRAZOLE 40 MG/VIAL IVP SCH (08:52)
[2019-10-21] MEDS: METOPROLOL TARTRATE 25 MG TAB PO SCH ×2 (08:53→22:11)
[2019-10-21] MEDS: INSULIN GLARGINE 100 UNITS/ML 10 ML VIAL SQ SCH ×2 (08:54→22:13)
[2019-10-21] MEDS: PHARMACY COMMUNICATION MISC SCH ×2 (09:00→21:00)
[2019-10-21] MEDS: ZINC SULFATE 220 CAPSULE PO SCH (11:33)
[2019-10-21] MEDS ORDERED: PHARMACY COMMUNICATION MISC SCH (12:00)
[2019-10-21 12:01] LABS: ALBUMIN 1.3 g/dL (3.5-5.0); BILIRUBIN,TOTAL 0.2 mg/dL (0.2-1.0); CREATININE 2.3 mg/dL (0.5-1.5); POTASSIUM 4.1 mmol/L (3.5-5.1)
[2019-10-21] MEDS ORDERED: DEXMEDETOMIDINE HCL IV SCH (12:15)
[2019-10-21] MEDS ORDERED: DEXTROSE 5% IV SCH (12:15)
[2019-10-21] MEDS ORDERED: WATER IV SCH (12:15)
[2019-10-21] MEDS ORDERED: FENTANYL 2500MCG+NS 250ML 250 ML IV ONE (12:35)
[2019-10-21] MEDS ORDERED: SODIUM CHLORIDE 0.9% 500ML 500 ML IV ONE (12:37)
--- NOTE | 2019-10-21 12:55 | NUR ---
CODE/DNR CALLED ANU GIRON (PH: [phone]) AND INFORMED OF CURRENT CODE. DR. BENNETT SPOKE TO OVER THE PHONE AND EXPLAINED PATIENT IS LIKELY TO CODE AGAIN AND DISCUSSED CODE STATUS. CONSENTED TO DNR. CM VERIFIED SECOND WITNESS. ANU GIRON DENIED HAVING ANY QUESTIONS AND VERBALIZED UNDERSTANDING OF DNR MEANING. ORDER PLACED PLACED IN [facility] AND DR. BENNETT AND CM SIGNED TELEPHONE CONSENT FOR DNR. CD
[2019-10-21] MEDS ORDERED: SODIUM BICARB 50MEQ 50ML VIAL ONE ×2 (13:04→13:32)
[2019-10-21 13:14] LABS: HEMATOCRIT 34.3 % (42-54); MEAN CORPUSCULAR HEMOGLOBIN 30.5 pg (27.0-33.0); MEAN CORPUSCULAR HGB CONC 30.6 g/dL (32.0-36.0); MEAN CORPUSCULAR VOLUME 99.7 fL (79-99); NUCLEATED RED BLOOD CELLS 0.4 % (0.0-0.19); PLATELET COUNT (AUTO) 98 K/uL (130-400); RED BLOOD CELL COUNT(AUTO) 3.44 MIL/uL (4.50-6.20); RED CELL DISTRIBUTION WIDTH 14.9 % (11.0-15.5); WHITE BLOOD COUNT (AUTO) 15.8 K/uL (4.8-10.8)
[2019-10-21] MEDS ORDERED: SODIUM BICARB 50MEQ 50ML VIAL IV STA (13:20)
[2019-10-21] MEDS ORDERED: VASOPRESSIN 20 UNITS in SODIUM CHLORIDE 0.9% 100 ML IV SCH (13:30)
[2019-10-21] MEDS ORDERED: SODIUM BICARB 8.4% 50ML SYRING 150 MEQ in DEXTROSE 5%-WATER 1,000 ML IV SCH (13:30)
[2019-10-21] MEDS ORDERED: ROCURONIUM BROMIDE 100 MG in SODIUM CHLORIDE 0.9% 100 ML IV SCH (13:30)
[2019-10-21] MEDS ORDERED: NOREPINEPHRINE 4MG/NS 250ML 250 ML IV SCH (13:30)
[2019-10-21] MEDS ORDERED: NOREPINEPHRINE 4MG/NS 250ML 250 ML IV ONE (13:32)
[2019-10-21 13:39] LABS: POTASSIUM 5.8 mmol/L (3.5-5.1)
[2019-10-21 13:40] LABS: CREATININE 2.6 mg/dL (0.5-1.5); TROPONIN I 0.42 ng/mL (0.00-0.06)
[2019-10-21 13:41] LABS: BILIRUBIN,TOTAL 0.3 mg/dL (0.2-1.0)
[2019-10-21 13:42] LABS: ALBUMIN 1.1 g/dL (3.5-5.0); TOTAL PROTEIN, SERUM 3.8 g/dL (6.0-8.3)
[2019-10-21] MEDS ORDERED: MIDAZOLAM 50MG-0.9% NS 50ML 50 ML BAG IV SCH (13:45)
[2019-10-21 13:50] LABS: INR 1.2 (0.85-1.15); PARTIAL THROMBOPLASTIN TIME 34.5 SEC (26.3-35.5); PROTHROMBIN TIME 12.9 SEC (9.6-11.6)
--- NOTE | 2019-10-21 14:50 | NUR ---
1250 DNR Patient had episode of PEA and coded. Patient ROSC and Emelina stated to Dr. Persaud he would like DNR status. I spoke with and she did say that she does not want another code if Mr. Virk heart stops again.
[2019-10-21 15:08] LABS: ABG BASE EXCESS -5.9 mmol/L (-2.0-3.0); ABG HCO3 19.6 mmol/L (21.0-28.0); ABG OXYGEN SATURATION 97.5 % (95.0-99.0); ABG PCO2 38 mmHg (35-48)
[2019-10-21] MEDS ORDERED: CALCIUM CHLORIDE 100 MG/ML 10 ML SYG IVP SCH (15:30)
[2019-10-21] MEDS ORDERED: CALCIUM CHLORIDE 1,000 MG in SODIUM CHLORIDE 0.9% 100 ML IVP ONE (15:45)
[2019-10-21] MEDS: LINEZOLID 600 MG/ISO-OSM 300 ML IV SCH (16:30)
[2019-10-21] MEDS: MEROPENEM 1 GM VIAL IVP SCH (16:30)
[2019-10-21] MEDS: LEVETIRACETAM 500 MG in SODIUM CHLORIDE 0.9% 100 ML IV SCH ×2 (18:32→18:50)
[2019-10-21 19:45] LABS: ABG BASE EXCESS -2.4 mmol/L (-2.0-3.0); ABG HCO3 21.7 mmol/L (21.0-28.0); ABG OXYGEN SATURATION 97.6 % (95.0-99.0); ABG PCO2 36 mmHg (35-48)
[2019-10-22] VITALS (37 sets, daily range): BP systolic 97–197; BP diastolic 40–64
[2019-10-22] MEDS: METHYLPREDNISOLONE SOD SUCC 40MG/ML 1ML IVP SCH ×4 (00:10→23:47)
[2019-10-22] MEDS: LINEZOLID 600 MG/ISO-OSM 300 ML IV SCH ×2 (03:38→16:23)
[2019-10-22 04:18] LABS: ALBUMIN 1.2 g/dL (3.5-5.0); BILIRUBIN,TOTAL 0.4 mg/dL (0.2-1.0); CREATININE 3.8 mg/dL (0.5-1.5); CRP QUANTITATIVE 25.1 mg/L (0.00-9.0); POTASSIUM 4.5 mmol/L (3.5-5.1); TOTAL PROTEIN, SERUM 4.1 g/dL (6.0-8.3)
[2019-10-22 04:19] LABS: BASOPHILS % (AUTO) 0.1 % (0.0-5.0); HEMATOCRIT 30.8 % (42-54); LYMPHOCYTES % (AUTO) 2.8 % (21.0-51.0); MEAN CORPUSCULAR HEMOGLOBIN 30.4 pg (27.0-33.0); MEAN CORPUSCULAR HGB CONC 32.5 g/dL (32.0-36.0); MEAN CORPUSCULAR VOLUME 93.6 fL (79-99); MONOCYTES % (AUTO) 2.2 % (3.0-13.0); PLATELET COUNT (AUTO) 123 K/uL (130-400); RED BLOOD CELL COUNT(AUTO) 3.29 MIL/uL (4.50-6.20); RED CELL DISTRIBUTION WIDTH 14.7 % (11.0-15.5); WHITE BLOOD COUNT (AUTO) 13.7 K/uL (4.8-10.8)
[2019-10-22] MEDS: MEROPENEM 1 GM VIAL IVP SCH ×2 (04:57→16:23)
[2019-10-22] MEDS ORDERED: SODIUM BICARB 50MEQ 50ML VIAL ONE (06:01)
[2019-10-22] MEDS ORDERED: FENTANYL 2500MCG+NS 250ML 250 ML IV ONE ×2 (08:34→22:46)
[2019-10-22] MEDS: LEVETIRACETAM 500 MG in SODIUM CHLORIDE 0.9% 100 ML IV SCH ×2 (08:39→20:39)
[2019-10-22] MEDS: PHARMACY COMMUNICATION MISC SCH ×4 (08:39→20:40)
[2019-10-22] MEDS: DOXYCYCLINE HYCLATE 100 MG TABLET PO SCH ×2 (08:39→20:39)
[2019-10-22] MEDS: METOPROLOL TARTRATE 25 MG TAB PO SCH ×2 (08:40→20:39)
[2019-10-22] MEDS: ENOXAPARIN SODIUM 100 MG/1 ML SQ SCH (08:41)
[2019-10-22] MEDS: ASCORBIC ACID 500 MG TAB PO SCH (08:41)
[2019-10-22] MEDS: INSULIN HUMULIN R 100 UNIT/ML 3ML SQ SCH ×4 (08:43→21:00)
[2019-10-22] MEDS: INSULIN GLARGINE 100 UNITS/ML 10 ML VIAL SQ SCH ×2 (08:44→21:12)
[2019-10-22] MEDS ORDERED: PROPOFOL 1000 MG/100 ML 100 ML IV ONE (09:36)
[2019-10-22] MEDS: ISOSORBIDE DINITRATE 10 MG TABLET PO SCH ×2 (09:37→20:39)
[2019-10-22] MEDS: PANTOPRAZOLE 40 MG/VIAL IVP SCH (09:37)
[2019-10-22] MEDS ORDERED: PROPOFOL 1000 MG/100 ML IV PRN (09:45)
--- NOTE | 2019-10-22 09:45 | NUR ---
PT NOTED TO BE HAVING CONTINUOUS SEIZURES. PT ALSO NOTED TO BE DESATTING INTO THE 70'S. DR. BENNETT NOTIFIED AND GAVE ORDERS TO MAX OUT VERSED DRIP, START PROPOFOL DRIP, CONSULT NEUROLOGY, AND TAKE PT FOR HEAD CT ONCE SEIZURES ARE UNDER CONTROL OR HAVE STOPPED. WILL CONT TO MONITOR.
[2019-10-22] MEDS: ZINC SULFATE 220 CAPSULE PO SCH (11:12)
[2019-10-22] MEDS: MIDAZOLAM 50MG-0.9% NS 50ML 50 ML IV SCH ×2 (11:13→14:37)
[2019-10-22] MEDS ORDERED: DEXTROSE 50%-WATER 50 ML DISP.SYRIN IV ONE (11:25)
[2019-10-22] MEDS ORDERED: GLUCAGON 1MG KIT 1 MG ML IM PRN (11:30)
[2019-10-22] MEDS ORDERED: DEXTROSE 50%-WATER 50 ML DISP.SYRIN IV PRN (11:30)
[2019-10-22] MEDS ORDERED: FOSPHENYTOIN SODIUM 1,000 MG in SODIUM CHLORIDE 0.9% 50 ML IJ ONE (12:30)
[2019-10-22 15:02] LABS: ABG BASE EXCESS -1.4 mmol/L (-2.0-3.0); ABG HCO3 24.5 mmol/L (21.0-28.0); ABG OXYGEN SATURATION 88.8 % (95.0-99.0); ABG PCO2 45 mmHg (35-48)
[2019-10-22] MEDS ORDERED: COMPOUND IV REFRIGERATED 1 EACH IVSOLN MISC PRN (15:30)
--- NOTE | 2019-10-22 18:41 | NUR ---
PT NOTED TO CONTINUE TO HAVE SEIZURES ON AND OFF THROUGHOUT SHIFT. PT STILL HAS ORDER FOR HEAD CT ONCE STABLE AND NO SEIZURES. PT NOTED TO HAVE LESS SEIZURE ACTIVITY THROUGHOUT LAST HOUR. WILL PASS ON TO CLAIMS COUNSEL TO TAKE PT FOR HEAD CT AND NOTIFY DR. BENNETT OF RESULTS. WILL CONT TO MONITOR.
[2019-10-22] MEDS: SODIUM CHLORIDE 0.9% IV SCH (23:47)
[2019-10-22] MEDS: FOSPHENYTOIN SODIUM IV SCH (23:47)
[2019-10-23] VITALS (30 sets, daily range): BP systolic 101–157; BP diastolic 45–71
[2019-10-23] MEDS: MEROPENEM 1 GM VIAL IVP SCH ×2 (06:05→18:11)
[2019-10-23] MEDS: PHARMACY COMMUNICATION MISC SCH ×5 (06:05→21:00)
[2019-10-23] MEDS: LINEZOLID 600 MG/ISO-OSM 300 ML IV SCH ×2 (06:05→18:11)
[2019-10-23 07:27] LABS: BASOPHILS % (AUTO) 0.1 % (0.0-5.0); HEMATOCRIT 26.9 % (42-54); LYMPHOCYTES % (AUTO) 5.3 % (21.0-51.0); MEAN CORPUSCULAR HEMOGLOBIN 30.4 pg (27.0-33.0); MEAN CORPUSCULAR HGB CONC 31.2 g/dL (32.0-36.0); MEAN CORPUSCULAR VOLUME 97.5 fL (79-99); MONOCYTES % (AUTO) 1.7 % (3.0-13.0); NEUTROPHILS % (AUTO) 90.9 % (40.0-77.0); PLATELET COUNT (AUTO) 84 K/uL (130-400); RED BLOOD CELL COUNT(AUTO) 2.76 MIL/uL (4.50-6.20); RED CELL DISTRIBUTION WIDTH 14.7 % (11.0-15.5); WHITE BLOOD COUNT (AUTO) 8.9 K/uL (4.8-10.8)
[2019-10-23] MEDS: INSULIN HUMULIN R 100 UNIT/ML 3ML SQ SCH ×3 (07:30→18:18)
[2019-10-23 07:55] LABS: ALBUMIN 1.1 g/dL (3.5-5.0); BILIRUBIN,TOTAL 0.5 mg/dL (0.2-1.0); CREATININE 5.5 mg/dL (0.5-1.5); CRP QUANTITATIVE 23.9 mg/L (0.00-9.0); POTASSIUM 5.5 mmol/L (3.5-5.1); TOTAL PROTEIN, SERUM 3.8 g/dL (6.0-8.3)
[2019-10-23] MEDS: ISOSORBIDE DINITRATE 10 MG TABLET PO SCH ×2 (09:00→21:06)
[2019-10-23] MEDS: METOPROLOL TARTRATE 25 MG TAB PO SCH ×2 (09:00→21:00)
[2019-10-23] MEDS: MIDAZOLAM 50MG-0.9% NS 50ML 50 ML IV SCH ×2 (10:57→21:10)
[2019-10-23] MEDS: PROPOFOL 1000 MG/100 ML 100 ML IV PRN ×2 (11:00→18:37)
[2019-10-23] MEDS: METHYLPREDNISOLONE SOD SUCC 40MG/ML 1ML IVP SCH ×2 (11:18→18:11)
[2019-10-23] MEDS: LEVETIRACETAM 500 MG in SODIUM CHLORIDE 0.9% 100 ML IV SCH ×2 (11:19→21:04)
[2019-10-23] MEDS: ASCORBIC ACID 500 MG TAB PO SCH (11:20)
[2019-10-23] MEDS: DOXYCYCLINE HYCLATE 100 MG TABLET PO SCH ×2 (11:20→21:05)
[2019-10-23] MEDS: PANTOPRAZOLE 40 MG/VIAL IVP SCH (11:20)
[2019-10-23] MEDS: INSULIN GLARGINE 100 UNITS/ML 10 ML VIAL SQ SCH ×2 (11:22→21:09)
[2019-10-23] MEDS: SODIUM CHLORIDE 0.9% IV SCH (11:23)
[2019-10-23] MEDS: ENOXAPARIN SODIUM 100 MG/1 ML SQ SCH (11:23)
[2019-10-23] MEDS: ZINC SULFATE 220 CAPSULE PO SCH (11:23)
[2019-10-23] MEDS: FOSPHENYTOIN SODIUM IV SCH (11:23)
[2019-10-23] MEDS: FOSPHENYTOIN SODIUM 100 MG/2 ML VIAL IV SCH (18:19)
[2019-10-23] MEDS ORDERED: FENTANYL 2500MCG+NS 250ML 250 ML IV ONE (18:40)
[2019-10-24] VITALS (24 sets, daily range): BP systolic 111–145; BP diastolic 45–80
[2019-10-24] MEDS: INSULIN HUMULIN R 100 UNIT/ML 3ML SQ SCH ×5 (00:48→21:00)
[2019-10-24] MEDS: METHYLPREDNISOLONE SOD SUCC 40MG/ML 1ML IVP SCH ×3 (00:48→18:37)
[2019-10-24] MEDS: FOSPHENYTOIN SODIUM 100 MG/2 ML VIAL IV SCH ×3 (02:00→18:38)
[2019-10-24] MEDS: PHARMACY COMMUNICATION MISC SCH ×5 (04:45→21:00)
[2019-10-24] MEDS: LINEZOLID 600 MG/ISO-OSM 300 ML IV SCH (05:41)
[2019-10-24] MEDS: MEROPENEM 1 GM VIAL IVP SCH (05:42)
[2019-10-24 05:56] LABS: HEMATOCRIT 25.5 % (42-54); MEAN CORPUSCULAR HEMOGLOBIN 30.3 pg (27.0-33.0); MEAN CORPUSCULAR HGB CONC 31.4 g/dL (32.0-36.0); MEAN CORPUSCULAR VOLUME 96.6 fL (79-99); PLATELET COUNT (AUTO) 76 K/uL (130-400); RED BLOOD CELL COUNT(AUTO) 2.64 MIL/uL (4.50-6.20); RED CELL DISTRIBUTION WIDTH 14.3 % (11.0-15.5); WHITE BLOOD COUNT (AUTO) 9.2 K/uL (4.8-10.8)
[2019-10-24 06:19] LABS: ALBUMIN 1.1 g/dL (3.5-5.0); BILIRUBIN,TOTAL 0.3 mg/dL (0.2-1.0); CRP QUANTITATIVE 18.3 mg/L (0.00-9.0); TOTAL PROTEIN, SERUM 3.8 g/dL (6.0-8.3)
[2019-10-24 07:50] LABS: BAND NEUTROPHILS % (MANUAL) 4 % (0-2); LYMPHOCYTES % (MANUAL) 4 % (22-44); MAN.DIFF COMMENT-IMPRESSION MANUAL DIFFERENTIAL; MONOCYTES % (MANUAL) 2 % (2-9); PLATELET MORPHOLOGY COMMENT DECREASED; SEGMENTED NEUTROPHILS % 90 % (40-70)
[2019-10-24 08:11] LABS: ABG BASE EXCESS -4.4 mmol/L (-2.0-3.0); ABG HCO3 20.9 mmol/L (21.0-28.0); ABG PCO2 39 mmHg (35-48)
[2019-10-24] MEDS: PANTOPRAZOLE 40 MG/VIAL IVP SCH (08:50)
[2019-10-24] MEDS: LEVETIRACETAM 500 MG in SODIUM CHLORIDE 0.9% 100 ML IV SCH ×2 (08:50→20:44)
[2019-10-24] MEDS: DOXYCYCLINE HYCLATE 100 MG TABLET PO SCH (08:50)
[2019-10-24] MEDS: INSULIN GLARGINE 100 UNITS/ML 10 ML VIAL SQ SCH ×2 (08:52→21:00)
[2019-10-24] MEDS: ISOSORBIDE DINITRATE 10 MG TABLET PO SCH (09:00)
[2019-10-24] MEDS: ENOXAPARIN SODIUM 100 MG/1 ML SQ SCH (09:00)
[2019-10-24] MEDS: METOPROLOL TARTRATE 25 MG TAB PO SCH (09:00)
[2019-10-24] MEDS: ASCORBIC ACID 500 MG TAB PO SCH (09:00)
[2019-10-24] MEDS: MIDAZOLAM 50MG-0.9% NS 50ML 50 ML IV SCH ×2 (09:04→23:12)
[2019-10-24] MEDS: PROPOFOL 1000 MG/100 ML 100 ML IV PRN (10:29)
[2019-10-24] MEDS: ZINC SULFATE 220 CAPSULE PO SCH (12:29)
--- NOTE | 2019-10-24 13:00 | NUR ---
THIS NURSE SPOKE W/ ABOUT DIAYLSIS AND DIALYSIS CATHETER PLACEMENT. THIS NURSE EXPLAINED TO PROCEDURES FOR DIALYSIS AND DIAYLSIS CATHETER PLACEMENT. THIS NURSE ALSO EXPLAINED RISKS AND BENEFITS OF DIAYLSIS WELL DIAYLSIS CATHETER PLACEMENT. GAVE TELEPHONE CONSENT FOR BOTH PROCEDURES. JOLYNN RN, VERIFIED TELEPHONE CONSENT OF DIAYLSIS AND CATHETER PLACEMENT. THIS NURSE ALSO MADE CHANGES TO DNR PER WIFES REQUEST FOR PATIENT TO RECEIVE DIAYLSIS, TUBE FEEDINGS, AND BLOOD PRODUCTS. DR. MIRANDA AT BEDSIDE TO INSERT DIALYSIS CATHETER.
[2019-10-25] VITALS (28 sets, daily range): BP systolic 86–190; BP diastolic 55–90
[2019-10-25] MEDS: METHYLPREDNISOLONE SOD SUCC 40MG/ML 1ML IVP SCH ×3 (01:39→16:44)
[2019-10-25] MEDS: FOSPHENYTOIN SODIUM 100 MG/2 ML VIAL IV SCH ×3 (01:39→17:58)
[2019-10-25] MEDS: PROPOFOL 1000 MG/100 ML 100 ML IV PRN ×3 (03:26→20:06)
[2019-10-25 04:20] LABS: EOSINOPHILS % (AUTO) 1.3 % (0.0-8.0); HEMATOCRIT 25.2 % (42-54); LYMPHOCYTES % (AUTO) 8.7 % (21.0-51.0); MEAN CORPUSCULAR HGB CONC 31.7 g/dL (32.0-36.0); MEAN CORPUSCULAR VOLUME 94.4 fL (79-99); MONOCYTES % (AUTO) 1.6 % (3.0-13.0); NEUTROPHILS % (AUTO) 83.2 % (40.0-77.0); NUCLEATED RED BLOOD CELLS 0.4 % (0.0-0.19); PLATELET COUNT (AUTO) 76 K/uL (130-400); RED BLOOD CELL COUNT(AUTO) 2.67 MIL/uL (4.50-6.20); RED CELL DISTRIBUTION WIDTH 14.2 % (11.0-15.5); WHITE BLOOD COUNT (AUTO) 7.5 K/uL (4.8-10.8)
[2019-10-25 04:43] LABS: ALBUMIN 1.1 g/dL (3.5-5.0); BILIRUBIN,TOTAL 0.2 mg/dL (0.2-1.0); CREATININE 4.6 mg/dL (0.5-1.5); POTASSIUM 4.1 mmol/L (3.5-5.1); THYROID STIMULATING HORMONE 2.01 uIU/mL (0.36-3.74); TOTAL PROTEIN, SERUM 3.8 g/dL (6.0-8.3)
[2019-10-25] MEDS: PHARMACY COMMUNICATION MISC SCH ×3 (04:45→21:00)
[2019-10-25] MEDS: INSULIN HUMULIN R 100 UNIT/ML 3ML SQ SCH ×4 (06:00→23:46)
[2019-10-25] MEDS: FENTANYL 2500MCG+NS 250ML 250 ML IV SCH ×2 (07:56→21:26)
[2019-10-25] MEDS: ENOXAPARIN SODIUM 100 MG/1 ML SQ SCH (07:56)
[2019-10-25] MEDS: LEVETIRACETAM 500 MG in SODIUM CHLORIDE 0.9% 100 ML IV SCH ×2 (07:58→20:06)
[2019-10-25] MEDS: PANTOPRAZOLE 40 MG/VIAL IVP SCH (07:59)
[2019-10-25] MEDS: ASCORBIC ACID 500 MG TAB PO SCH (07:59)
[2019-10-25] MEDS: INSULIN GLARGINE 100 UNITS/ML 10 ML VIAL SQ SCH ×2 (09:00→20:20)
[2019-10-25] MEDS: ZINC SULFATE 220 CAPSULE PO SCH (12:04)
--- NOTE | 2019-10-25 14:00 | NUR ---
pt noted to continue to have low oxygen saturations in the 80s. RT notified and at bedside, pt continued to desat. dr. clemens at bedside. katia updated about pts condition. dr. clemens at bedside to insert new et tube. verbal order from dr. clemens to prone pt and update family. unable to get ahold of family after stabilizing pt. message left for to call this nurse back. will cont to monitor.
[2019-10-25] MEDS: MIDAZOLAM 50MG-0.9% NS 50ML 50 ML IV SCH (15:59)
[2019-10-26] VITALS (28 sets, daily range): BP systolic 86–150; BP diastolic 46–66
[2019-10-26] MEDS: METHYLPREDNISOLONE SOD SUCC 40MG/ML 1ML IVP SCH ×4 (00:01→23:35)
[2019-10-26] MEDS: FOSPHENYTOIN SODIUM 100 MG/2 ML VIAL IV SCH ×3 (02:27→17:37)
[2019-10-26] MEDS: MIDAZOLAM 50MG-0.9% NS 50ML 50 ML IV SCH ×2 (03:28→14:55)
[2019-10-26] MEDS: PROPOFOL 1000 MG/100 ML 100 ML IV PRN ×5 (04:20→20:53)
[2019-10-26] MEDS: PHARMACY COMMUNICATION MISC SCH ×4 (04:45→20:45)
[2019-10-26] MEDS: INSULIN HUMULIN R 100 UNIT/ML 3ML SQ SCH ×4 (05:19→23:39)
[2019-10-26 05:41] LABS: BASOPHILS % (AUTO) 0.1 % (0.0-5.0); HEMATOCRIT 26.3 % (42-54); LYMPHOCYTES % (AUTO) 4.4 % (21.0-51.0); MEAN CORPUSCULAR HEMOGLOBIN 30.5 pg (27.0-33.0); MEAN CORPUSCULAR HGB CONC 31.6 g/dL (32.0-36.0); MEAN CORPUSCULAR VOLUME 96.7 fL (79-99); MONOCYTES % (AUTO) 1.3 % (3.0-13.0); NEUTROPHILS % (AUTO) 89.6 % (40.0-77.0); NUCLEATED RED BLOOD CELLS 0.3 % (0.0-0.19); PLATELET COUNT (AUTO) 87 K/uL (130-400); RED BLOOD CELL COUNT(AUTO) 2.72 MIL/uL (4.50-6.20); RED CELL DISTRIBUTION WIDTH 14.4 % (11.0-15.5); WHITE BLOOD COUNT (AUTO) 10.4 K/uL (4.8-10.8)
[2019-10-26 05:51] LABS: ALBUMIN 1.1 g/dL (3.5-5.0); BILIRUBIN,TOTAL 0.2 mg/dL (0.2-1.0); CREATININE 4.9 mg/dL (0.5-1.5); CRP QUANTITATIVE 55.7 mg/L (0.00-9.0); TOTAL PROTEIN, SERUM 4.1 g/dL (6.0-8.3)
[2019-10-26 05:56] LABS: POTASSIUM 6.3 mmol/L (3.5-5.1)
[2019-10-26] MEDS ORDERED: CALCIUM CHLORIDE 100 MG/ML 10 ML SYG IVP SCH (06:30)
[2019-10-26] MEDS ORDERED: DEXTROSE 50%-WATER 50 ML DISP.SYRIN IV SCH (06:30)
[2019-10-26] MEDS: INSULIN HUMULIN R 100 UNIT/ML 3ML IV SCH (06:39)
[2019-10-26 06:54] LABS: ABG BASE EXCESS -1.2 mmol/L (-2.0-3.0); ABG HCO3 26.4 mmol/L (21.0-28.0); ABG OXYGEN SATURATION 95.3 % (95.0-99.0); ABG PCO2 56 mmHg (35-48)
[2019-10-26] MEDS: ASCORBIC ACID 500 MG TAB PO SCH (08:13)
[2019-10-26] MEDS: INSULIN GLARGINE 100 UNITS/ML 10 ML VIAL SQ SCH ×2 (08:13→21:51)
[2019-10-26] MEDS: ENOXAPARIN SODIUM 100 MG/1 ML SQ SCH ×3 (08:14→14:23)
[2019-10-26] MEDS: PANTOPRAZOLE 40 MG/VIAL IVP SCH (08:14)
[2019-10-26] MEDS: LEVETIRACETAM 500 MG in SODIUM CHLORIDE 0.9% 100 ML IV SCH ×2 (08:19→21:00)
[2019-10-26 08:48] LABS: CREATININE 4.9 mg/dL (0.5-1.5)
[2019-10-26] MEDS: FENTANYL 2500MCG+NS 250ML 250 ML IV SCH ×2 (09:03→20:51)
[2019-10-26] MEDS: ZINC SULFATE 220 CAPSULE PO SCH (12:44)
[2019-10-26] MEDS ORDERED: SODIUM POLYSTYRENE SULFONATE 15 GM/60 ML ML RC SCH (14:00)
[2019-10-26] MEDS ORDERED: SODIUM CHLORIDE 0.9% 1000ML 1,000 ML IV ONE (16:24)
[2019-10-26] MEDS ORDERED: ALBUMIN (HUMAN) 25% 100 ML IV ONE (16:39)
[2019-10-26] MEDS ORDERED: HEPARIN SODIUM 5000UNIT/ML 1ML VIAL IJ PRN (17:15)
[2019-10-26] MEDS ORDERED: SODIUM CHLORIDE 0.9% 1000ML 1,000 ML IV PRN (17:15)
[2019-10-26] MEDS ORDERED: ACETAMINOPHEN 325 MG TAB PO PRN (17:15)
[2019-10-26] MEDS ORDERED: 0.9% SODIUM CHLORIDE 1000 ML IV BAG IV PRN (17:15)
[2019-10-26 22:29] LABS: HEMATOCRIT 22.3 % (42-54)
[2019-10-26 22:45] LABS: ALBUMIN 1.4 g/dL (3.5-5.0); CREATININE 3.6 mg/dL (0.5-1.5)
[2019-10-26 22:47] LABS: HEMOGLOBIN A1C 7.9 % (4.0-6.0)
[2019-10-26 23:08] LABS: % IRON SATURATION 40.4 % (30-44)
[2019-10-27] VITALS (24 sets, daily range): BP systolic 106–193; BP diastolic 43–63
[2019-10-27] MEDS: MIDAZOLAM 50MG-0.9% NS 50ML 50 ML IV SCH ×3 (00:39→20:23)
[2019-10-27] MEDS: FOSPHENYTOIN SODIUM 100 MG/2 ML VIAL IV SCH ×3 (00:39→17:31)
[2019-10-27] MEDS: INSULIN HUMULIN R 100 UNIT/ML 3ML IV SCH (04:35)
[2019-10-27] MEDS: PROPOFOL 1000 MG/100 ML 100 ML IV PRN ×3 (04:35→20:29)
[2019-10-27] MEDS: PHARMACY COMMUNICATION MISC SCH ×3 (04:45→20:45)
[2019-10-27 06:12] LABS: BASOPHILS % (AUTO) 0.1 % (0.0-5.0); HEMATOCRIT 22.8 % (42-54); MEAN CORPUSCULAR HEMOGLOBIN 30.7 pg (27.0-33.0); MEAN CORPUSCULAR VOLUME 95.8 fL (79-99); MONOCYTES % (AUTO) 1.1 % (3.0-13.0); NEUTROPHILS % (AUTO) 92.7 % (40.0-77.0); NUCLEATED RED BLOOD CELLS 0.2 % (0.0-0.19); PLATELET COUNT (AUTO) 75 K/uL (130-400); RED BLOOD CELL COUNT(AUTO) 2.38 MIL/uL (4.50-6.20); RED CELL DISTRIBUTION WIDTH 14.1 % (11.0-15.5); WHITE BLOOD COUNT (AUTO) 10.2 K/uL (4.8-10.8)
[2019-10-27 06:33] LABS: ALBUMIN 1.4 g/dL (3.5-5.0); BILIRUBIN,TOTAL 0.3 mg/dL (0.2-1.0); CREATININE 3.7 mg/dL (0.5-1.5); CRP QUANTITATIVE 50.5 mg/L (0.00-9.0); POTASSIUM 5.2 mmol/L (3.5-5.1)
[2019-10-27] MEDS: INSULIN HUMULIN R 100 UNIT/ML 3ML SQ SCH ×3 (06:49→18:00)
[2019-10-27 07:07] LABS: ABG BASE EXCESS -2.8 mmol/L (-2.0-3.0); ABG OXYGEN SATURATION 95.3 % (95.0-99.0); ABG PCO2 44 mmHg (35-48)
[2019-10-27] MEDS ORDERED: SODIUM CHLORIDE 0.9% 500ML 500 ML IV ONE (07:23)
[2019-10-27 07:35] LABS: ABG BASE EXCESS -2.9 mmol/L (-2.0-3.0); ABG HCO3 22.7 mmol/L (21.0-28.0); ABG OXYGEN SATURATION 95.9 % (95.0-99.0); ABG PCO2 42 mmHg (35-48)
[2019-10-27] MEDS: FENTANYL 2500MCG+NS 250ML 250 ML IV SCH ×2 (07:47→17:31)
[2019-10-27] MEDS: ASCORBIC ACID 500 MG TAB PO SCH (09:00)
[2019-10-27] MEDS: INSULIN GLARGINE 100 UNITS/ML 10 ML VIAL SQ SCH ×2 (09:00→21:00)
[2019-10-27] MEDS: PANTOPRAZOLE 40 MG/VIAL IVP SCH (09:20)
[2019-10-27] MEDS: LEVETIRACETAM 500 MG in SODIUM CHLORIDE 0.9% 100 ML IV SCH ×2 (09:20→20:28)
[2019-10-27] MEDS: METHYLPREDNISOLONE SOD SUCC 40MG/ML 1ML IVP SCH ×2 (09:20→17:30)
--- NOTE | 2019-10-27 10:43 | NUR ---
[address] Adame. Report given on patient status, labs. No new orders.
[2019-10-27] MEDS: ZINC SULFATE 220 CAPSULE PO SCH (12:00)
[2019-10-27 19:46] LABS: HEMATOCRIT 23.3 % (42-54)
[2019-10-27] MEDS: DOCUSATE NA 100MG/10ML UDCUP PO SCH (20:29)
[2019-10-28] VITALS (50 sets, daily range): BP systolic 110–196; BP diastolic 41–115
[2019-10-28] MEDS: PROPOFOL 1000 MG/100 ML 100 ML IV PRN ×6 (01:02→18:11)
[2019-10-28] MEDS: FENTANYL 2500MCG+NS 250ML 250 ML IV SCH ×3 (01:03→11:03)
[2019-10-28] MEDS: ACETAMINOPHEN 325 MG TAB PO PRN (01:17)
[2019-10-28] MEDS: MIDAZOLAM 50MG-0.9% NS 50ML 50 ML IV SCH ×3 (01:47→20:20)
[2019-10-28] MEDS: METHYLPREDNISOLONE SOD SUCC 40MG/ML 1ML IVP SCH ×3 (01:49→15:33)
[2019-10-28] MEDS: FOSPHENYTOIN SODIUM 100 MG/2 ML VIAL IV SCH ×3 (01:50→17:17)
[2019-10-28] MEDS: PHARMACY COMMUNICATION MISC SCH ×3 (04:45→20:45)
[2019-10-28 05:54] LABS: BASOPHILS % (AUTO) 0.1 % (0.0-5.0); EOSINOPHILS % (AUTO) 0.4 % (0.0-8.0); HEMATOCRIT 23.4 % (42-54); LYMPHOCYTES % (AUTO) 8.2 % (21.0-51.0); MEAN CORPUSCULAR HEMOGLOBIN 30.1 pg (27.0-33.0); MEAN CORPUSCULAR HGB CONC 30.8 g/dL (32.0-36.0); MEAN CORPUSCULAR VOLUME 97.9 fL (79-99); MONOCYTES % (AUTO) 1.2 % (3.0-13.0); NEUTROPHILS % (AUTO) 87.8 % (40.0-77.0); NUCLEATED RED BLOOD CELLS 0.4 % (0.0-0.19); PLATELET COUNT (AUTO) 81 K/uL (130-400); RED BLOOD CELL COUNT(AUTO) 2.39 MIL/uL (4.50-6.20); RED CELL DISTRIBUTION WIDTH 14.6 % (11.0-15.5); WHITE BLOOD COUNT (AUTO) 9.9 K/uL (4.8-10.8)
[2019-10-28] MEDS: INSULIN HUMULIN R 100 UNIT/ML 3ML SQ SCH ×4 (06:00→17:12)
[2019-10-28] MEDS: INSULIN HUMULIN R 100 UNIT/ML 3ML IV SCH (06:22)
[2019-10-28 06:33] LABS: ALBUMIN 1.3 g/dL (3.5-5.0); BILIRUBIN,TOTAL 0.2 mg/dL (0.2-1.0); CREATININE 4.6 mg/dL (0.5-1.5); CRP QUANTITATIVE 60.7 mg/L (0.00-9.0); POTASSIUM 5.1 mmol/L (3.5-5.1); TOTAL PROTEIN, SERUM 4.1 g/dL (6.0-8.3)
[2019-10-28 08:48] LABS: ABG BASE EXCESS -2.5 mmol/L (-2.0-3.0); ABG HCO3 22.8 mmol/L (21.0-28.0); ABG PCO2 41 mmHg (35-48)
[2019-10-28] MEDS: ASCORBIC ACID 500 MG TAB PO SCH (08:59)
[2019-10-28] MEDS: INSULIN GLARGINE 100 UNITS/ML 10 ML VIAL SQ SCH (09:00)
[2019-10-28] MEDS: DOCUSATE NA 100MG/10ML UDCUP PO SCH ×2 (09:48→20:35)
[2019-10-28] MEDS: ZINC SULFATE 220 CAPSULE PO SCH (09:48)
[2019-10-28] MEDS: PANTOPRAZOLE 40 MG/VIAL IVP SCH (09:48)
[2019-10-28] MEDS: LEVETIRACETAM 500 MG in SODIUM CHLORIDE 0.9% 100 ML IV SCH (09:48)
[2019-10-28] MEDS: MEROPENEM 1 GM VIAL IVP SCH (15:33)
[2019-10-28 19:09] LABS: HEPATITIS Bs ANTIGEN SCREEN P Negative (Negative)
[2019-10-29] VITALS (24 sets, daily range): BP systolic 91–148; BP diastolic 49–72
[2019-10-29] MEDS: LEVETIRACETAM 500 MG in SODIUM CHLORIDE 0.9% 100 ML IV SCH ×3 (00:18→20:46)
[2019-10-29] MEDS: MEROPENEM 1 GM VIAL IVP SCH ×3 (00:19→23:42)
[2019-10-29] MEDS: METHYLPREDNISOLONE SOD SUCC 40MG/ML 1ML IVP SCH ×4 (00:19→23:42)
[2019-10-29] MEDS: PROPOFOL 1000 MG/100 ML 100 ML IV PRN ×6 (00:20→23:43)
[2019-10-29] MEDS: INSULIN GLARGINE 100 UNITS/ML 10 ML VIAL SQ SCH ×3 (00:21→20:47)
[2019-10-29] MEDS: MIDAZOLAM 50MG-0.9% NS 50ML 50 ML IV SCH ×3 (02:00→19:42)
[2019-10-29] MEDS: FOSPHENYTOIN SODIUM 100 MG/2 ML VIAL IV SCH ×3 (02:34→18:21)
[2019-10-29 03:59] LABS: HEMATOCRIT 21.1 % (42-54); MEAN CORPUSCULAR HEMOGLOBIN 30.7 pg (27.0-33.0); MEAN CORPUSCULAR HGB CONC 32.7 g/dL (32.0-36.0); MEAN CORPUSCULAR VOLUME 93.8 fL (79-99); PLATELET COUNT (AUTO) 72 K/uL (130-400); RED BLOOD CELL COUNT(AUTO) 2.25 MIL/uL (4.50-6.20); RED CELL DISTRIBUTION WIDTH 14.9 % (11.0-15.5); WHITE BLOOD COUNT (AUTO) 12.2 K/uL (4.8-10.8)
[2019-10-29 04:09] LABS: ALBUMIN 1.1 g/dL (3.5-5.0); BILIRUBIN,TOTAL 0.3 mg/dL (0.2-1.0); CREATININE 2.9 mg/dL (0.5-1.5); POTASSIUM 4.2 mmol/L (3.5-5.1); TOTAL PROTEIN, SERUM 4.1 g/dL (6.0-8.3)
[2019-10-29 04:33] LABS: BAND NEUTROPHILS % (MANUAL) 2 % (0-2); EOSINOPHILS % (MANUAL) 1 % (1-6); LYMPHOCYTES % (MANUAL) 3 % (22-44); MAN.DIFF COMMENT-IMPRESSION MANUAL DIFFERENTIAL; MONOCYTES % (MANUAL) 1 % (2-9); SEGMENTED NEUTROPHILS % 93 % (40-70)
[2019-10-29 04:34] LABS: PLATELET MORPHOLOGY COMMENT DECREASED
[2019-10-29 04:40] LABS: CRP QUANTITATIVE 169.6 mg/L (0.00-9.0)
[2019-10-29] MEDS: PHARMACY COMMUNICATION MISC SCH (04:45)
[2019-10-29] MEDS: INSULIN HUMULIN R 100 UNIT/ML 3ML SQ SCH ×5 (06:00→23:36)
[2019-10-29] MEDS: INSULIN HUMULIN R 100 UNIT/ML 3ML IV SCH (06:30)
[2019-10-29 07:11] LABS: ABG BASE EXCESS -0.6 mmol/L (-2.0-3.0); ABG HCO3 25.2 mmol/L (21.0-28.0); ABG OXYGEN SATURATION 92.4 % (95.0-99.0); ABG PCO2 46 mmHg (35-48)
[2019-10-29] MEDS: PANTOPRAZOLE 40 MG/VIAL IVP SCH (08:24)
[2019-10-29] MEDS: ASCORBIC ACID 500 MG TAB PO SCH (08:25)
[2019-10-29] MEDS: DOCUSATE NA 100MG/10ML UDCUP PO SCH ×2 (08:25→20:03)
[2019-10-29] MEDS ORDERED: ENOXAPARIN SODIUM 1 MG/KG SQ SCH (09:00)
[2019-10-29] MEDS ORDERED: ASPIRIN 81MG TAB.CHEW NG SCH (09:00)
[2019-10-29] MEDS ORDERED: ENOXAPARIN SODIUM 100 MG/1 ML SQ SCH (09:00)
[2019-10-29] MEDS: ZINC SULFATE 220 CAPSULE PO SCH (12:12)
[2019-10-29] MEDS ORDERED: SODIUM CHLORIDE 0.9% 250 ML IV ONE (17:18)
[2019-10-29] MEDS: FENTANYL 2500MCG+NS 250ML 250 ML IV SCH (19:41)
--- NOTE | 2019-10-29 22:30 | NUR ---
PRONE PT PLACED IN PRONE POSITION AT THIS TIME.
[2019-10-30] VITALS (24 sets, daily range): BP systolic 135–176; BP diastolic 46–54
[2019-10-30] MEDS: FOSPHENYTOIN SODIUM 100 MG/2 ML VIAL IV SCH ×3 (01:22→17:44)
[2019-10-30] MEDS: PROPOFOL 1000 MG/100 ML 100 ML IV PRN ×4 (02:58→17:44)
[2019-10-30 04:08] LABS: HEMATOCRIT 23.7 % (42-54); MEAN CORPUSCULAR HGB CONC 33.3 g/dL (32.0-36.0); MEAN CORPUSCULAR VOLUME 92.9 fL (79-99); PLATELET COUNT (AUTO) 75 K/uL (130-400); RED BLOOD CELL COUNT(AUTO) 2.55 MIL/uL (4.50-6.20); RED CELL DISTRIBUTION WIDTH 14.8 % (11.0-15.5); WHITE BLOOD COUNT (AUTO) 10.1 K/uL (4.8-10.8)
[2019-10-30] MEDS: INSULIN HUMULIN R 100 UNIT/ML 3ML IV SCH (04:12)
[2019-10-30 04:19] LABS: ALBUMIN 1.1 g/dL (3.5-5.0); BILIRUBIN,TOTAL 0.3 mg/dL (0.2-1.0); CREATININE 3.6 mg/dL (0.5-1.5); CRP QUANTITATIVE 151.2 mg/L (0.00-9.0); POTASSIUM 4.6 mmol/L (3.5-5.1); TOTAL PROTEIN, SERUM 4.2 g/dL (6.0-8.3)
[2019-10-30 04:38] LABS: BASOPHILS % (MANUAL) 1 % (0-2); LYMPHOCYTES % (MANUAL) 5 % (22-44); MAN.DIFF COMMENT-IMPRESSION MANUAL DIFFERENTIAL; MONOCYTES % (MANUAL) 2 % (2-9); PLATELET MORPHOLOGY COMMENT DECREASED; SEGMENTED NEUTROPHILS % 92 % (40-70)
[2019-10-30] MEDS: INSULIN HUMULIN R 100 UNIT/ML 3ML SQ SCH ×3 (05:06→17:38)
[2019-10-30 07:23] LABS: ABG BASE EXCESS -1.4 mmol/L (-2.0-3.0); ABG OXYGEN SATURATION 89.9 % (95.0-99.0); ABG PCO2 48 mmHg (35-48)
[2019-10-30] MEDS: INSULIN GLARGINE 100 UNITS/ML 10 ML VIAL SQ SCH (09:00)
[2019-10-30] MEDS ORDERED: LINEZOLID 600 MG/ISO-OSM 300 ML IV SCH (09:30)
[2019-10-30] MEDS: MIDAZOLAM 50MG-0.9% NS 50ML 50 ML IV SCH ×2 (09:44→17:45)
[2019-10-30] MEDS: METHYLPREDNISOLONE SOD SUCC 40MG/ML 1ML IVP SCH ×2 (09:45→17:44)
[2019-10-30] MEDS: ASCORBIC ACID 500 MG TAB PO SCH (09:45)
[2019-10-30] MEDS: PANTOPRAZOLE 40 MG/VIAL IVP SCH (09:45)
[2019-10-30] MEDS: DOCUSATE NA 100MG/10ML UDCUP PO SCH ×2 (09:45→21:00)
[2019-10-30] MEDS ORDERED: RENAL DOSE IV PRN (09:45)
[2019-10-30] MEDS: LEVETIRACETAM 500 MG in SODIUM CHLORIDE 0.9% 100 ML IV SCH (09:46)
--- NOTE | 2019-10-30 10:23 | NUR ---
DC PLAN [place] CIRCULATING NURSE WILL BE CALLING FAMILY TO OFFER COMFORT MEASURES AND TO SPEAK ABOUT WITHDRAWL. CIRCULATING NURSE HAS HISTORY WITH FAMILY. PATIENT VENTED RESPIRATIONS AT 34. Addendum: 10/30/19 at 1027 by MARCELINO HOWARD RN CM Amended: Links added.
[2019-10-30] MEDS: ZOSYN 3.375GM+NS 50ML 50 ML IV SCH (11:01)
[2019-10-30] MEDS: ZINC SULFATE 220 CAPSULE PO SCH (12:00)
[2019-10-30] MEDS: MEROPENEM 1 GM VIAL IVP SCH (12:30)
--- NOTE | 2019-10-30 15:00 | NUR ---
Documentation completed Completed admission database, family and pt history. Information was provided by Tena Virk ().
--- NOTE | 2019-10-30 16:59 | NUR ---
Documentation completion Family history completed. Information was provided by Zohaib Pettitbrother) Addendum: 10/30/19 at 1704 by CLARITA ROJO RN RN [place] pt
[2019-10-30] MEDS ORDERED: SODIUM CHLORIDE 0.9% 250 ML IV ONE ×2 (21:58→22:03)
[2019-10-31] VITALS (24 sets, daily range): BP systolic 115–158; BP diastolic 45–53
[2019-10-31] MEDS: INSULIN GLARGINE 100 UNITS/ML 10 ML VIAL SQ SCH ×3 (00:07→21:27)
[2019-10-31] MEDS: PROPOFOL 1000 MG/100 ML 100 ML IV PRN ×6 (00:23→23:12)
[2019-10-31] MEDS: METHYLPREDNISOLONE SOD SUCC 40MG/ML 1ML IVP SCH ×2 (00:23→09:09)
[2019-10-31] MEDS: LEVETIRACETAM 500 MG in SODIUM CHLORIDE 0.9% 100 ML IV SCH ×3 (00:25→20:29)
[2019-10-31] MEDS: ZOSYN 3.375GM+NS 50ML 50 ML IV SCH ×3 (00:26→21:28)
[2019-10-31] MEDS: FOSPHENYTOIN SODIUM 100 MG/2 ML VIAL IV SCH ×3 (03:00→17:54)
[2019-10-31 04:09] LABS: HEMATOCRIT 22.9 % (42-54); MEAN CORPUSCULAR HEMOGLOBIN 30.9 pg (27.0-33.0); MEAN CORPUSCULAR HGB CONC 33.6 g/dL (32.0-36.0); PLATELET COUNT (AUTO) 72 K/uL (130-400); RED BLOOD CELL COUNT(AUTO) 2.49 MIL/uL (4.50-6.20); RED CELL DISTRIBUTION WIDTH 15.2 % (11.0-15.5)
[2019-10-31 04:27] LABS: BILIRUBIN,TOTAL 0.5 mg/dL (0.2-1.0); CREATININE 2.8 mg/dL (0.5-1.5); POTASSIUM 3.8 mmol/L (3.5-5.1); TOTAL PROTEIN, SERUM 4.1 g/dL (6.0-8.3)
[2019-10-31] MEDS: ACETAMINOPHEN 325 MG TAB PO PRN (04:41)
[2019-10-31 04:48] LABS: BAND NEUTROPHILS % (MANUAL) 22 % (0-2); BASOPHILS % (MANUAL) 2 % (0-2); EOSINOPHILS % (MANUAL) 4 % (1-6); LYMPHOCYTES % (MANUAL) 1 % (22-44); SEGMENTED NEUTROPHILS % 71 % (40-70)
[2019-10-31 04:49] LABS: MAN.DIFF COMMENT-IMPRESSION MANUAL DIFFERENTIAL; PLATELET MORPHOLOGY COMMENT DECREASED
[2019-10-31 05:06] LABS: CRP QUANTITATIVE 181.3 mg/L (0.00-9.0)
[2019-10-31] MEDS: INSULIN HUMULIN R 100 UNIT/ML 3ML SQ SCH ×5 (06:00→23:56)
[2019-10-31] MEDS: INSULIN HUMULIN R 100 UNIT/ML 3ML IV SCH (06:30)
[2019-10-31 08:04] LABS: ABG BASE EXCESS 0.3 mmol/L (-2.0-3.0); ABG HCO3 26.5 mmol/L (21.0-28.0); ABG OXYGEN SATURATION 86.4 % (95.0-99.0); ABG PCO2 49 mmHg (35-48)
[2019-10-31] MEDS: DOCUSATE NA 100MG/10ML UDCUP PO SCH ×2 (09:09→20:29)
[2019-10-31] MEDS: ASCORBIC ACID 500 MG TAB PO SCH (09:09)
[2019-10-31] MEDS: PANTOPRAZOLE 40 MG/VIAL IVP SCH (09:09)
--- NOTE | 2019-10-31 09:51 | NUR ---
RD FOLLOW UP Pt with altered renals. Recommend modify Tube Feeding Formula: Recommend Continuous Nepro initiated at 15mls. Goal 45mls/hr Flushes 130ml Q6hrs. Recommendations faxed to [facility] RN notified. RD to continue to monitor. Please notify as additional nutrition concerns arise. Thank you.
[2019-10-31] MEDS: ENOXAPARIN SODIUM 40 MG/0.4 ML SYRINGE SQ SCH (09:56)
[2019-10-31] MEDS ORDERED: VANCOMYCIN PROTOCOL PER PHARMACY IV SCH (10:00)
[2019-10-31] MEDS ORDERED: VANCOMYCIN 1.5 GM in SODIUM CHLORIDE 0.9% 250 ML IV SCH (10:00)
[2019-10-31] MEDS: MIDAZOLAM 100MG-0.9% NS 100ML 100 ML IV SCH ×2 (10:36→23:12)
[2019-10-31] MEDS: FENTANYL 2500MCG+NS 250ML 250 ML IV SCH ×2 (10:37→23:12)
[2019-10-31] MEDS: METHYLPREDNISOLONE SOD SUCC 125MG/2ML VIAL IVP SCH ×2 (10:42→20:29)
[2019-10-31] MEDS: ZINC SULFATE 220 CAPSULE PO SCH (13:17)
[2019-11-01] VITALS (11 sets, daily range): BP systolic 104–125; BP diastolic 47–52
[2019-11-01] MEDS: FOSPHENYTOIN SODIUM 100 MG/2 ML VIAL IV SCH ×2 (01:41→10:15)
[2019-11-01] MEDS: PROPOFOL 1000 MG/100 ML 100 ML IV PRN ×2 (04:59→10:31)
[2019-11-01] MEDS: INSULIN HUMULIN R 100 UNIT/ML 3ML SQ SCH ×2 (06:00→12:00)
[2019-11-01] MEDS: INSULIN HUMULIN R 100 UNIT/ML 3ML IV SCH (06:30)
[2019-11-01] MEDS: ENOXAPARIN SODIUM 40 MG/0.4 ML SYRINGE SQ SCH (09:00)
[2019-11-01] MEDS ORDERED: VANCOMYCIN 1GM+NS 250ML 250 ML IV SCH (09:00)
[2019-11-01] MEDS: PANTOPRAZOLE 40 MG/VIAL IVP SCH (09:00)
[2019-11-01] MEDS: ASCORBIC ACID 500 MG TAB PO SCH (09:00)
[2019-11-01] MEDS: DOCUSATE NA 100MG/10ML UDCUP PO SCH (09:00)
[2019-11-01] MEDS: ZOSYN 3.375GM+NS 50ML 50 ML IV SCH (09:00)
[2019-11-01] MEDS ORDERED: DEXAMETHASONE SOD PHOSPHATE 4 MG/ML 1ML VIAL IVP SCH (09:00)
[2019-11-01] MEDS: LEVETIRACETAM 500 MG in SODIUM CHLORIDE 0.9% 100 ML IV SCH (09:00)
--- NOTE | 2019-11-01 11:52 | NUR ---
THIS NURSE SPOKE W/ ANU GIRON ABOUT COMFORT CARE FOR PT. SPOUSE REQUESTED FOR PATIENT TO BE MADE COMFORT CARE ONLY AND AT 1500 CARE TO BE WITHDRAWN. THIS NURSE EXPLAINED TO PROCEDURES FOR WITHDRAWING CARE. VERBALIZED UNDERSTANDING AND REQUESTED TO WAIT UNTIL 1500. THIS NURSE VERBALIZED UNDERSTANDING AND VERBALIZED TO SPOUSE WOULD WAIT UNTIL 1500 TO WITHDRAW CARE. REQUESTED TO COME SAY GOOD BYE TO PT. THIS NURSE GOT THE OK FROM HOSPITAL EDUCATION COORDINATOR AND CHARGE NURSE TO ALLOW TO COME SAY GOOD BYE. THIS NURSE EDUCATED HIGH RISK FOR [place] COVID-19 D/T NOT HAVING PROPER N-95 MASK. VERBALIZED UNDERSTANDING AND CONTINUED TO REQUEST TO COME SEE DESPITE HAVING PROPER N-95. THIS NURSE VERBALIZED UNDERSTANDING AND EDUCATED ON PROPER ENTRANCE INTO HOSPITAL. VERBALIZED UNDERSTANDING. Addendum: 11/01/19 at 1159 by BEATRIZ ELLINGTON RN RN REQUESTED FOR STAFF TO STOP ALL TREATMENT AND ALLOW PATIENT TO BE COMFORTABLE. THIS NURSE CLARIFIED THE ADMINISTRATION OF MEDICATIONS AND PROCEDURES. PER REQUEST ALL MEDS AND PROCEDURES HELD. THIS NURSE CLARIFIED SEDATION MEDICATION ADMINISTRATION W/. REQUESTED FOR PATIENT TO ONLY RECEIVE SEDATION MEDICATION UNTIL EXTUBATION AT 1500. THIS NURSE VERBALIZED UNDERSTANDING OF FAMILY'S WISHES.
[2019-11-01] MEDS: ZINC SULFATE 220 CAPSULE PO SCH (12:00)
--- NOTE | 2019-11-01 15:42 | NUR ---
PRONOUNCEMENT CALLED TO ROOM, AT BEDSIDE, PT HAD WITHDRAWAL OF LIFE SUPPORT. PT HAS NO RESPIRATIONS, NO HEART TONES, UNRESPONSIVE, PUPILS NON-REACTIVE TO LIGHT. PT PRONOUNCED AT THIS TIME.
--- NOTE | 2019-11-05 17:35 | NUR ---
Final COVID Results Received call from Emelina and asked regarding status of PCR. Informed COVID results are positive. Suggested to try a different home who may be willing to give a more traditional service.
== END 2019-11-01 17:12 | disposition expired | DRG 207 ==
LOC: EDH 21:38 → EDHIP 23:39 → 2CH 10-13 18:00
PROVIDERS: ADMIT Hospitalist; ATTEND Hospitalist
PROC: 5A09557 Assistance with Respiratory Ventilation, Greater than 96 Consecutive Hours, Continuous Positive Airway Pressure (ICD-10-PCS; 2019-10-13)
PROC: 5A09457 Assistance with Respiratory Ventilation, 24-96 Consecutive Hours, Continuous Positive Airway Pressure (ICD-10-PCS; 2019-10-18)
PROC: 5A1955Z Respiratory Ventilation, Greater than 96 Consecutive Hours (ICD-10-PCS; 2019-10-21)
PROC: 30233K1 Transfusion of Nonautologous Frozen Plasma into Peripheral Vein, Percutaneous Approach (ICD-10-PCS; 2019-10-21)
PROC: 30233N1 Transfusion of Nonautologous Red Blood Cells into Peripheral Vein, Percutaneous Approach (ICD-10-PCS; 2019-10-21)
PROC: 0BH17EZ Insertion of Endotracheal Airway into Trachea, Via Natural or Artificial Opening (ICD-10-PCS; 2019-10-21)
PROC: 02HV33Z Insertion of Infusion Device into Superior Vena Cava, Percutaneous Approach (ICD-10-PCS; 2019-10-21)
PROC: 5A1D70Z Performance of Urinary Filtration, Intermittent, Less than 6 Hours Per Day (ICD-10-PCS; principal; 2019-10-24)
PROC: 4A00X4Z Measurement of Central Nervous Electrical Activity, External Approach (ICD-10-PCS; 2019-10-24)
PROC: 5A1D70Z Performance of Urinary Filtration, Intermittent, Less than 6 Hours Per Day (ICD-10-PCS; 2019-10-26)
PROC: 5A1D70Z Performance of Urinary Filtration, Intermittent, Less than 6 Hours Per Day (ICD-10-PCS; 2019-10-28)
PROC: 5A1D70Z Performance of Urinary Filtration, Intermittent, Less than 6 Hours Per Day (ICD-10-PCS; 2019-10-30)
DX: U07.1 COVID-19 (principal); J12.89 Other viral pneumonia; J96.21 Acute and chronic respiratory failure with hypoxia; G92 Toxic encephalopathy; N17.0 Acute kidney failure with tubular necrosis; M62.82 Rhabdomyolysis; E87.0 Hyperosmolality and hypernatremia; E87.1 Hypo-osmolality and hyponatremia; G40.89 Other seizures; G93.1 Anoxic brain damage, not elsewhere classified; I13.0 Hypertensive heart and chronic kidney disease with heart failure and stage 1 through stage 4 chronic kidney disease, or unspecified chronic kidney disease; N39.0 Urinary tract infection, site not specified; Z16.24 Resistance to multiple antibiotics; Z68.41 Body mass index [BMI] 40.0-44.9, adult; I25.10 Atherosclerotic heart disease of native coronary artery without angina pectoris; I46.9 Cardiac arrest, cause unspecified; D64.9 Anemia, unspecified; D69.6 Thrombocytopenia, unspecified; E03.9 Hypothyroidism, unspecified; E11.22 Type 2 diabetes mellitus with diabetic chronic kidney disease; E11.51 Type 2 diabetes mellitus with diabetic peripheral angiopathy without gangrene; Z66 Do not resuscitate; E11.65 Type 2 diabetes mellitus with hyperglycemia; E66.9 Obesity, unspecified; E78.00 Pure hypercholesterolemia, unspecified; E78.5 Hyperlipidemia, unspecified; E86.0 Dehydration; E87.5 Hyperkalemia; E87.8 Other disorders of electrolyte and fluid balance, not elsewhere classified; G47.30 Sleep apnea, unspecified; I50.9 Heart failure, unspecified; N18.9 Chronic kidney disease, unspecified; Z79.4 Long term (current) use of insulin; Z87.891 Personal history of nicotine dependence; Z83.3 Family history of diabetes mellitus; Z83.79 Family history of other diseases of the digestive system; Z82.49 Family history of ischemic heart disease and other diseases of the circulatory system
CPT/HCPCS: 31500; 36415; 36430; 36600; 70450; 71045; 74176; 80048; 80053; 80061; 81001; 82040; 82150; 82247; 82248; 82435; 82550; 82565; 82570; 82728; 82803; 82947; 82948; 83036; 83540; 83550; 83605; 83615; 83690; 83735; 83874; 83880; 83935; 84100; 84132; 84145; 84156; 84295; 84300; 84439; 84443; 84484; 84520; 85014; 85018; 85025; 85027; 85378; 85384; 85610; 85730; 86022; 86140; 86701; 86704; 86706; 86850; 86900; 86901; 86922; 86927; 87040; 87071; 87088; 87205; 87340; 87390; 87426; 87520; 90935; 93005; 93306; 93356; 94002; 94003; 94660; 95816; 99291; A4330; A4344; C1894; C9113; G0378; J0360; J0696; J1100; J1630; J1644; J1650; J1815; J1953; J2020; J2060; J2185; J2405; J2543; J2704; J2920; J2930; J3010; J3370; J3490; J7030; J7040; J7050; J7060; J7070; P9016; P9017; P9046; Q2009; U0003